=== PATIENT | male | born 1985 | race Caucasian/White ===

== ENCOUNTER 2017-01-05 14:17 | Emergency (ER) | payer SELFPAY ==
[~2017-01-05] VITALS: Ht 193 cm; Wt 79.4 kg
--- OUTSIDE RECORDS SUMMARY | 2017-01-05 14:26 | XMS REPORT | Continuity of Care Document ---
Demographics Preferred Language Unknown Marital Status Unknown Muslim Affiliation Unknown Race Unknown Ethnic Group Unknown Author Author [facility] Address Unknown Phone Unavailable Allergies Active Description Code Type Severity Reaction Onset Reported/Identified Relationship to Patient Clinical Status Yes Penicillins Drug Allergy N/A N/A 05/30/2008 Medications Problems Date Dx Coded Attending Type Code Diagnosis Diagnosed By 03/20/2008 844.9 SPRAIN/STRAIN KNEE/LEG 04/18/2008 719.46 joint pain, localized in the knee 04/18/2008 836.0 TEAR OF MEDIAL CARTILAGE OR MENISCUS OF KNEE CURRENT 10/20/2011 461.9 SINUSITIS ACUTE 10/20/2011 465.9 UPPER RESPIRATORY INFECTION 10/20/2011 784.0 HEADACHE 09/28/2012 787.01 nausea with vomiting 09/28/2012 789.01 abdominal pain in the right upper belly (RUQ) Procedures Code [place] [address] THERAPUTIC INJ SQ/IM 09/28/2012 J1885 TORADOL INJ 09/28 22688 UA LONG DIP 09/28 Results Encounters ACCT No. Visit Date/Time Discharge Status Pt. Type Provider Facility Loc./Unit Complaint [id number] 09/28/2012 14:37:00 Document Registration
[2017-01-05] MEDS ORDERED: KETOROLAC 60 MG/2 ML VIAL IM STA (15:12)
--- NOTE | 2017-01-05 15:21 | ED Abdominal Pain ---
General Chief Complaint: Abdominal/GI Problems Stated Complaint: RIGHT SIDE PAIN Nursing Triage Note: to ER from [facility] with reports of right sided abdominal pain. Denies any other issues. Sepsis Screen: No Definite Risk History of Present Illness Time Seen By Provider: 15:00 Initial Comments Patient reports right upper and lower quadrant pain. He reports the last evening he was urinating when he felt and heard a stone. He visualized in the toilet. Since then he has had right-sided abdominal pain. He denies a previous history of kidney stones. He has been told that he has cholecystitis, in the past. He reports some nausea this morning but no vomiting. He was seen at [facility] in [place], [place] earlier today and referred here for additional testing. Timing/Duration: 12-24 Hours Severity/Quality: Moderate Location: RUQ, RLQ Radiation: No Radiation Activities at Onset: None Modifying Factors: Improves With Analgesics, Improves With Resting Associated Symptoms: Denies Symptoms Allergies and Home Medications Allergies Uncoded Allergies: PENICILLIN (Allergy, Unknown, 01/05/17) SULFA (Allergy, Unknown, 01/05/17) Home Medications Tramadol HCl 50 Mg Tablet, 50 MG PO Q8H PRN for PAIN-MODERATE, #12 Ref 0 Prescribed by: NELLIE AVILA on 01/05/17 1624 Review of Systems Constitutional: no symptoms reported, see HPI Gastrointestinal: See HPI, Abdominal Pain Genitourinary: See HPI, Flank Pain (right), Pain All Other Systems Reviewed Negative Unless Noted: Yes Past Mwleilp-Eifwym-Wnwnkj Hx Patient Social History Alcohol Use: Denies Use Recreational Drug Use: No Smoking Status: Current Everyday Smoker Type Used: Cigarettes 2nd Hand Smoke Exposure: Yes Recent Foreign Travel: No Contact w/Someone Who Travel: No Recent Infectious Disease Expo: No Recent Hopitalizations: No Physical Abuse: No Sexual Abuse: No Immunizations Up To Date Tetanus Booster (TDap): Unknown PED Vaccines UTD: Yes Seasonal Allergies Seasonal Allergies: No Surgeries History of Surgeries: Yes (back surgery) Respiratory History of Respiratory Disorde: No Cardiovascular History of Cardiac Disorders: No Neurological History of Neurological Disord: No Genitourinary History of Genitourinary Disor: No Gastrointestinal History of Gastrointestinal Di: No Musculoskeletal History of Musculoskeletal Dis: Yes Musculoskeletal Disorders: Chronic Back Pain Endocrine History of Endocrine Disorders: No HEENT History of HEENT Disorders: No Cancer History of Cancer: No Psychosocial History of Psychiatric Problem: No Suicide Risk Score: 0 Blood Transfusions History of Blood Disorders: No Reviewed Nursing Assessment Reviewed/Agree w Nursing PMH: Yes Physical Exam Vital Signs VS - Last 72 Hours, by Label 01/05/17 01/05/17 01/05/17 14:31 15:32 16:31 Temp 98.2 98.2 98.2 Pulse 66 68 Resp 16 18 B/P (MAP) 111/37 Pulse Ox 96 98 O2 Delivery Room Air Room Air Capillary Refill : Less Than 3 Seconds General Appearance: WD/WN, no apparent distress HEENT: PERRL/EOMI, normal ENT inspection, TMs normal, pharynx normal Neck: non-tender, full range of motion, supple, normal inspection Respiratory: chest non-tender, lungs clear, normal breath sounds Cardiovascular: normal peripheral pulses, regular rate, rhythm, no murmur Gastrointestinal: normal bowel sounds, soft, no organomegaly, guarding, rebound , tenderness (right upper and lower quadrants) Back: no vertebral tenderness, CVA tenderness (R) Skin: normal color, warm/dry Lymphatic: no adenopathy Progress/Results/Core Measures Results/Orders My Orders Orders - NELLIE AVILA Ct Abd/Pelvis Wo(Kidney Stone) (01/05/17 15:12) Ketorolac Injection (Toradol Injection) (01/05/17 15:12) Vital Signs/I&O Vital Sign - Last 12Hours 01/05/17 01/05/17 01/05/17 14:31 15:32 16:31 Temp 98.2 98.2 98.2 Pulse 66 68 Resp 16 18 B/P (MAP) 111/37 Pulse Ox 96 98 O2 Delivery Room Air Room Air Blood Pressure Mean: 61 Progress Note : Time: 15:00 Progress Note Initial evaluation completed reviewed labs from [facility] from [place] WBC 6.0 hemoglobin 14.2, hematocrit 1.9 platelets 198. Sodium 140, potassium 4.4. Creatinine 0.85. UA essentially normal urine drugs green showed a presumptive positive on opiates no other abnormality seen. Recommended Toradol [address] abdomen and pelvis for stones. 1555 CT study essentially normal. 1615 patient reports decreased pain since the Toradol was given. Discussed discharge planning, patient agreed with this treatment plan. Diagnostic Imaging Diagonstic Imaging: CT Plain Films/CT/US/NM/MRI: abdomen, pelvis Comments NAME: SHYANNE MICHEL [facility] REC#: [id number] PT STATUS: REG ER : 1985 PHYSICIAN: NELLIE AVILA ADMIT DATE: 01/05/17/ER Draft Date of Exam:01/05/17 CT ABD/PELVIS WO(KIDNEY STONE) PROCEDURE: CT urinary tract, rule out kidney stone. TECHNIQUE: Multiple contiguous axial images were obtained through the abdomen and pelvis without the use of intravenous contrast. INDICATION: Flank pain. FINDINGS: The lung bases are clear. The liver, the gallbladder, the spleen, the pancreas, and the adrenal glands appear unremarkable for an unenhanced exam. The kidneys demonstrate no hydronephrosis. There are calcifications in the pelvis adjacent to the course of the ureters but are favored to be related to phleboliths. The exact location of the distal ureter in the pelvis on both sides is difficult to confirm with certainty on this unenhanced exam. There is no free fluid or fluid collection seen in the abdomen or pelvis. The abdominal aorta is normal in caliber. There is no bowel obstruction. The appendix proximal aspect appears normal. Its distal aspect is not well seen. The osseous structures demonstrate a 1-cm intertrochanteric sclerotic lesion on the right side, likely a bony island. IMPRESSION: No hydronephrosis. Calcifications in the pelvis are favored to be related to phleboliths with no definite urinary tract stones. Dictated on workstation # [id number] Dict: 01/05/17 1530 Trans: 01/05/17 1538 [id number] Interpreted by: ANTON MCKEON MD Electronically signed by: Reviewed: Reviewed by Me Departure Impression Impression: Primary Impression: Abdominal pain Qualified Codes: R10.31 - Right lower quadrant pain Disposition: 01 HOME, SELF-CARE Condition: Improved Departure-Patient Inst. Decision time for Depature: 16:10 Referrals: [facility] (PCP/Family) Primary Care Physician Patient Instructions: Acute Abdomen (Belly Pain), Adult (DC), Kidney Stones (DC ) Add. Discharge Instructions: Increase water intake. May alternate Tylenol 650 mg and ibuprofen 600 mg every 4 hours. Empty bladder frequently. Follow-up with primary care provider at [facility] if symptoms continue. Return to emergency department for increased pain not managed with pain medicine , fever greater than 101, inability urinate or new concerns. All discharge instructions reviewed with patient and/or family. Voiced understanding. Scripts Tramadol HCl (Tramadol HCl) 50 Mg Tablet 50 MG PO Q8H Y for PAIN-MODERATE, #12 TAB 0 Refills Prov: NELLIE AVILA 01/05/17 NELLIE AVILA Jan 05, 2017 15:21
--- NOTE | 2017-01-05 15:39 | Diagnostic Imaging Report ---
PROCEDURE: CT urinary tract, rule out kidney stone. TECHNIQUE: Multiple contiguous axial images were obtained through the abdomen and pelvis without the use of intravenous contrast. INDICATION: Flank pain. FINDINGS: The lung bases are clear. The liver, the gallbladder, the spleen, the pancreas, and the adrenal glands appear unremarkable for an unenhanced exam. The kidneys demonstrate no hydronephrosis. There are calcifications in the pelvis adjacent to the course of the ureters but are favored to be related to phleboliths. The exact location of the distal ureter in the pelvis on both sides is difficult to confirm with certainty on this unenhanced exam. There is no free fluid or fluid collection seen in the abdomen or pelvis. The abdominal aorta is normal in caliber. There is no bowel obstruction. The appendix proximal aspect appears normal. Its distal aspect is not well seen. The osseous structures demonstrate a 1-cm intertrochanteric sclerotic lesion on the right side, likely a bony island. IMPRESSION: No hydronephrosis. Calcifications in the pelvis are favored to be related to phleboliths with no definite urinary tract stones. Dictated by: Dictated on workstation # [id number]
[2017-01-05] MEDS ORDERED: TRAM50TA2 PO (16:24)
[2017-01-05 16:31] VITALS: BP 118/64
== END 2017-01-05 16:31 | disposition home or self-care (01) ==
LOC: EDUNIT# 14:17 → ER 14:22
DX: R10.31 Right lower quadrant pain (principal); R10.11 Right upper quadrant pain; F17.210 Nicotine dependence, cigarettes, uncomplicated; Z87.19 Personal history of other diseases of the digestive system; Z98.890 Other specified postprocedural states
CPT/HCPCS: 74176; 96372; 99284

== ENCOUNTER 2017-01-17 16:09 | Emergency (ER) | payer SELFPAY ==
[~2017-01-17] VITALS: Ht 193 cm; Wt 79.4 kg
[~2017-01-17 16:09] MED LIST: TRAM50TA2 PO
--- OUTSIDE RECORDS SUMMARY | 2017-01-17 16:13 | XMS REPORT | Continuity of Care Document ---
Demographics Preferred Language Unknown Marital Status Unknown Yarsanism Affiliation Unknown Race Unknown Ethnic Group Unknown Author Author [facility] Address Unknown Phone Unavailable Allergies Active Description [...] Procedures Code [place] [address] THERAPUTIC INJ SQ/IM 09/28/2012 J1885 TORADOL INJ 09/28 83841 UA LONG DIP 09/28 Results Encounters ACCT No. Visit Date/Time Discharge Status Pt. Type Provider Facility Loc./Unit Complaint [id number] 09/28/2012 14:37:00 Document Registration
--- NOTE | 2017-01-17 16:17 | ED Upper Extremity ---
General Chief Complaint: Upper Extremity Stated Complaint: RT HAND INJ,PUNCHED A TREE Source: patient History of Present Illness Time seen by provider: 16:16 Initial Comments To ER with pain and swelling to the dorsal aspect of the right hand after he punched a tree yesterday evening. He assures me this was not a fight bite and these are not teeth hernandez on his hand. He states that he has had a tetanus shot within the last 5 years. Onset: yesterday Severity: moderate Pain/Injury Location: right hand Method of Injury: direct blow Modifying Factors: Worse With Movement Allergies and Home Medications Allergies Uncoded Allergies: PENICILLIN (Allergy, Unknown, 01/05/17) SULFA (Allergy, Unknown, 01/05/17) Home Medications Tramadol HCl 50 Mg Tablet, 50 MG PO Q8H PRN for PAIN-MODERATE, #12 Ref 0 Prescribed by: NELLIE AVILA on 01/05/17 5933 Constitutional: see HPI EENTM: see HPI Respiratory: no symptoms reported Cardiovascular: no symptoms reported Genitourinary: no symptoms reported Musculoskeletal: see HPI Skin: no symptoms reported Psychiatric/Neurological: No Symptoms Reported Past Eprnteq-Gairai-Pywbwc Hx Patient Social History Alcohol Use: Denies Use Recreational Drug Use: No Smoking Status: Current Everyday Smoker Type Used: Cigarettes 2nd Hand Smoke Exposure: Yes Recent Foreign Travel: No Contact w/Someone Who Travel: No Recent Hopitalizations: No Immunizations Up To Date Tetanus Booster (TDap): Less than 5yrs PED Vaccines UTD: Yes Seasonal Allergies Seasonal Allergies: No Surgeries History of Surgeries: Yes (back surgery) Respiratory History of Respiratory Disorde: No Cardiovascular History of Cardiac Disorders: No Neurological History of Neurological Disord: No Genitourinary History of Genitourinary Disor: No Gastrointestinal History of Gastrointestinal Di: No Musculoskeletal History of Musculoskeletal Dis: Yes Musculoskeletal Disorders: Chronic Back Pain Endocrine History of Endocrine Disorders: No HEENT History of HEENT Disorders: No Cancer History of Cancer: No Psychosocial History of Psychiatric Problem: No Blood Transfusions History of Blood Disorders: No Physical Exam Vital Signs Vital Sign - Last 12Hours 01/17/17 16:15 Temp 98.2 Pulse 84 Resp 18 B/P (MAP) 130/89 Pulse Ox 99 Capillary Refill : General Appearance: WD/WN, no apparent distress HEENT: PERRL/EOMI, normal ENT inspection Neck: non-tender, full range of motion Respiratory: no respiratory distress, no accessory muscle use Gastrointestinal: normal bowel sounds, non tender, soft Shoulder: normal inspection, non-tender Elbow/Forearm: normal inspection, non-tender, Right Wrist: Yes normal inspection, Yes non-tender Hand: Right, abrasions (over the dorsal aspect of the PIP joint third and fourth fingers.), bone tenderness, ecchymosis, limited ROM, swelling Neurologic/Psychiatric: alert, normal mood/affect, oriented x 3 Skin: normal color, warm/dry Progress/Results/Core Measures Results/Orders My Orders Orders - CALVIN MCMANUS APRN Hand, Right, 3 Views (01/17/17 16:20) Vital Signs/I&O Vital Sign - Last 12Hours 01/17/17 16:15 Temp 98.2 Pulse 84 Resp 18 B/P (MAP) 130/89 Pulse Ox 99 Departure Impression Impression: Primary Impression: Soft tissue infection Additional Impression: Contusion Disposition: 01 HOME, SELF-CARE Condition: Stable Departure-Patient Inst. Decision time for Depature: 16:28 Referrals: NO,LOCAL PHYSICIAN (PCP/Family) Primary Care Physician Patient Instructions: Contusion (DC) Add. Discharge Instructions: 1. antibiotics as directed. These are the most important medication. 2. Return to ER for any increased redness, swelling, or fevers 3. All discharge instructions reviewed with patient and/or family. Voiced understanding. Scripts Tramadol HCl (Ultram) 50 Mg Tablet 50 MG PO Q6H Y for PAIN-SEVERE, #10 TAB Do not fill unless Doxycycline is also filled. Prov: CALVIN MCMANUS APRN 01/17/17 Doxycycline Hyclate (Doxycycline Hyclate) 100 Mg Tablet 100 MG PO BID, #14 TAB Prov: CALVIN MCMANUS APRN 01/17/17 CALVIN MCMANUS APRN Jan 17, 2017 16:17
[2017-01-17] MEDS ORDERED: DOXY100T2 PO (16:30)
[2017-01-17] MEDS ORDERED: TRAM-42 PO (16:30)
--- NOTE | 2017-01-17 16:37 | Diagnostic Imaging Report ---
EXAMINATION: Three views of the right hand. INDICATION: Severe right hand pain after punching a tree. FINDINGS: There is suggestion of mild soft tissue swelling along the dorsal aspect of the hand at the level of the metacarpal bones. No fracture, dislocation, or radiopaque foreign body is seen. The joint alignment is satisfactory. IMPRESSION: No fracture is seen. Dictated by: Dictated on workstation # [id number]
[2017-01-17 16:54] VITALS: BP 130/89
== END 2017-01-17 16:54 | disposition home or self-care (01) ==
LOC: EDUNIT# 16:09 → ER 16:11
DX: L98.9 Disorder of the skin and subcutaneous tissue, unspecified; W22.09XA Striking against other stationary object, initial encounter; S60.221A Contusion of right hand, initial encounter; F17.210 Nicotine dependence, cigarettes, uncomplicated
CPT/HCPCS: 73130; 99282

== ENCOUNTER 2017-12-26 20:08 | Emergency (ER) | payer SELFPAY ==
[~2017-12-26] VITALS: Ht 193 cm; Wt 82.6 kg
[~2017-12-26 20:08] MED LIST changes: +DOXY100T2 PO; +TRAM-42 PO
--- OUTSIDE RECORDS SUMMARY | 2017-12-26 20:12 | XMS REPORT ---
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 Active Problem Unspecified mood [affective] disorder F39 Active 55601495 Problem Pneumonia of right lower lobe due to infectious organism J18.1 Active 616848522 Problem Panic disorder F41.0 Active 024657602 Problem Polysubstance abuse F19.10 Active 054516716 ALLERGIES Substance Reaction Event Type Date Status Penicillin G Sodium Unknown Drug Allergy Oct, Active Sulfa Unknown Non Drug Allergy Oct, Active ENCOUNTERS Encounter Location Date Diagnosis [facility] [id number] [place] [phone] Jan, [facility] [address] [place] [address] Dec, [facility] [id number] [place] [phone] Dec, 2017 Unspecified mood [affective] disorder F39 ; Polysubstance abuse F19.10 and Panic disorder F41.0 [facility] [address] [place] [address] 15 Nov, 2017 Methamphetamine use disorder, severe, 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 ; Heroin use disorder, severe F11.20 and Cannabis use disorder, moderate, dependence F12.20 [facility] [id number] [place] [phone] Nov, Tinea versicolor B36.0 [facility] [address] [place] [phone] Nov, Unspecified mood [affective] disorder F39 ; Polysubstance abuse F19.10 and Panic disorder F41.0 [facility] [address] [place] [phone] Nov, [facility] [id number] [place] [phone] Nov, [facility] [id number] [place] [phone] Oct, Unspecified mood [affective] disorder F39 ; Polysubstance abuse F19.10 and Panic disorder F41.0 [facility] [address] [place] [phone] Oct, Tinea versicolor B36.0 [facility] [address] [place] [phone] Sep, Unspecified mood [affective] disorder F39 ; Polysubstance abuse F19.10 and Panic disorder F41.0 [facility] [address] [id number] Sep, Dental examination Z01.20 [facility] [address] [place] [phone] Sep, Unspecified mood [affective] disorder F39 and Polysubstance abuse F19.10 [facility] [id number] [place] [id number] August, [facility] [address] [id number] [place] [id number] August, Pneumonia of right lower lobe due to infectious organism J18.1 [facility] [address] [id number] [phone] Oct, [facility] [address] [id number] [place] [phone] August, Acute suppurative otitis media of right ear without spontaneous rupture of tympanic membrane, recurrence not specified H66.001 and Tinea versicolor B36.[address] [id number] [place] [id number] Sep, Dental examination V72.2 [address] [address] Jul, [facility] [id number] [address] Jul, [address] [address] Sep, [id number] [address] Oct, [id number] [place] [address] May, [id number] [place] [address] Mar, IMMUNIZATIONS No Known Immunizations SOCIAL HISTORY Never Assessed REASON FOR VISIT f/u. Abelardo GREENE PLAN OF CARE Activity Details Follow Up 3 Weeks Reason: f/u VITAL SIGNS Height 75 in 2017-11-02 Weight 186 lbs 2017-11-02 Heart Rate 78 bpm 2017-11-02 Respiratory Rate 20 2017-11-02 BMI 23.25 kg/m2 2017-11-02 Blood pressure systolic 110 mmHg 2017-11-02 Blood pressure diastolic 60 mmHg 2017-11-02 MEDICATIONS Medication Instructions Dosage Frequency Start Date End Date Duration Status Fluconazole 150 MG Orally once weekly 2 tablets Oct, Oct, 8 days Active Remeron 15 mg Orally Once a day at bedtime 1 tablet Oct, 30 day(s) Active Trileptal 300 MG Orally once a day in the morning and 2 tablets at bedtime 1 tablet Sep, 30 days Active ProAir HFA 108 (90 Base) MCG/ACT Inhalation 4 times a day 2 puffs 6h August 07 days Active RESULTS No Results PROCEDURES No Known procedures INSTRUCTIONS MEDICATIONS ADMINISTERED No Known Medications MEDICAL (GENERAL) HISTORY Type Description Date Medical History asthma Hospitalization History [facility] pneumonia 08/30/2017
--- OUTSIDE RECORDS SUMMARY | 2017-12-26 20:13 | XMS REPORT ---
Author Author MARIA FERNANDA KEANE [facility] Address [address] [place] [address] Care Team Providers Care Theatrical Scenic Designer Name Role Phone MARIA FERNANDA KEANE Unavailable PROBLEMS Type Condition ICD9-CM Code YCW60-AR Code Onset Dates Condition Status SNOMED Code Problem Tinea versicolor B36.0 Active 75212946 Problem Acute suppurative otitis media of right ear without spontaneous rupture of tympanic membrane, recurrence not specified H66.001 Active 55062813 ALLERGIES Substance Reaction Event Type Date Status Penicillin G Sodium Unknown Drug Allergy August, Active SOCIAL HISTORY Never Assessed PLAN OF CARE Activity Details Follow Up prn Reason: VITAL SIGNS Height 75 in 2016-08-17 Weight 170.6 lbs 2016-08-17 Temperature 97 degrees Fahrenheit 2016-08-17 Heart Rate 84 bpm 2016-08-17 Respiratory Rate 16 2016-08-17 BMI 21.32 kg/m2 2016-08-17 Blood pressure systolic 120 mmHg 2016-08-17 Blood pressure diastolic 72 mmHg 2016-08-17 MEDICATIONS Medication Instructions Dosage Frequency Start Date End Date Duration Status Ketoconazole 2 % Externally Once a day 1 application to affected area 24h August, August, 14 days Active Cephalexin 500 mg Orally 3 times a day 1 capsule 8h August, August, 14 days Active RESULTS No Results PROCEDURES No Known procedures IMMUNIZATIONS No Known Immunizations
--- OUTSIDE RECORDS SUMMARY | 2017-12-26 20:13 | XMS REPORT ---
Author Author MELVA HOLLINGSWORTH [facility] Address [address] [place] [address] Phone Unavailable Care Team Providers Care Assistant Merchandiser Name Role Phone MELVA HOLLINGSWORTH Unavailable Unavailable PROBLEMS Type Condition ICD9-CM Code [id number] Code Onset Dates Condition Status SNOMED Code Problem Tinea versicolor B36.0 Active 67633050 Problem Acute suppurative otitis media of right ear without spontaneous rupture of tympanic membrane, recurrence not specified H66.001 Active 72543369 Problem Cannabis use disorder, moderate, dependence F12.20 Active 42262412 Problem Methamphetamine use disorder, severe, 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 Active Problem Unspecified mood [affective] disorder F39 Active 04802394 Problem Pneumonia of right lower lobe due to infectious organism J18.1 Active 136277849 Problem Panic disorder F41.0 Active 502789830 Problem Polysubstance abuse F19.10 Active 641244430 ALLERGIES Substance Reaction Event Type Date Status Penicillin G Sodium Unknown Drug Allergy Sep, Active Sulfa Unknown Non Drug Allergy Sep, Active ENCOUNTERS Encounter Location Date Diagnosis [facility] [address] [place] [address] Dec, [facility] [id number] [place] [address] Dec, [facility] [address] [place] [address] Nov, Methamphetamine use disorder, severe, 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 ; Heroin use disorder, severe F11.20 and Cannabis use disorder, moderate, dependence F12.20 [facility] [id number] [place] [address] 37481[address] 2831 Nov, Tinea versicolor B36.0 [facility] [id number] [place] [address] 83866- [address] Nov, Unspecified mood [affective] disorder F39 ; Polysubstance abuse F19.10 and Panic disorder F41.0 [facility] [address] [id number] [address] Nov, [facility] [address] [place] [address] 07069- 2686 Nov, [facility] [address] [place] [address] 89201- 4265 Oct, Unspecified mood [affective] disorder F39 ; Polysubstance abuse F19.10 and Panic disorder F41.0 [facility] [address] [place] [address]33[address] 9158 Oct, Tinea versicolor B36.0 [facility] [address] [place] [address]13[address] 6621 Sep, Unspecified mood [affective] disorder F39 ; Polysubstance abuse F19.10 and Panic disorder F41.0 [facility] [address] [place] [id number] Sep, Dental examination Z01.20 [facility] [address] [place] [address] 94097- 0745 Sep, Unspecified mood [affective] disorder F39 and Polysubstance abuse F19.10 [facility] [address] [id number] [id number] August, [facility] [address] [id number][place] [id number] August, Pneumonia of right lower lobe due to infectious organism J18.1 [facility] [address] [id number][place] [id number] Oct, [facility] [address] [id number][place] [id number] August, Acute suppurative otitis media of right ear without spontaneous rupture of tympanic membrane, recurrence not specified H66.001 and Tinea versicolor B36.0 [facility] [address] [id number][place] [id number] Sep, Dental examination V72.2 [facility] [address] [id number] [address] Jul, [facility] [address] [id number] [address] Jul, [facility] [address] [id number] [address] Sep, [facility] [address] [id number] [address] Oct, [facility] [address] [facility] [id number] [address] May, [facility] [address] [id number] [address] Mar, IMMUNIZATIONS No Known Immunizations SOCIAL HISTORY Never Assessed REASON FOR VISIT Adult Outreach [facility] PLAN OF CARE Activity Details Follow Up prn Reason:Patient will contact if appointment is desired VITAL SIGNS MEDICATIONS Medication Instructions Dosage Frequency Start Date End Date Duration Status ProAir HFA 108 (90 Base) MCG/ACT Inhalation 4 times a day 2 puffs 6h August 07 days Not-Taking RESULTS No Results PROCEDURES Procedure Date Ordered Result Body Site Full mouth debridement October 10, 2017 Billing Notes on claim October 10, 2017 Dental Outreach adjust balance October 10, 2017 INSTRUCTIONS MEDICATIONS ADMINISTERED No Known Medications MEDICAL (GENERAL) HISTORY Type Description Date Medical History asthma Hospitalization History [facility] pneumonia 08/30/2017
--- OUTSIDE RECORDS SUMMARY | 2017-12-26 20:13 | XMS REPORT ---
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 Active Problem Unspecified mood [affective] disorder F39 Active 25076673 Problem Pneumonia of right lower lobe due to infectious organism J18.1 Active 864822822 Problem Panic disorder F41.0 Active 535328216 Problem Polysubstance abuse F19.10 Active 877596816 ALLERGIES Substance Reaction Event Type Date Status Penicillin G Sodium Unknown Drug Allergy Sep, Active Sulfa Unknown Non Drug Allergy Sep, Active ENCOUNTERS Encounter Location Date Diagnosis [facility] [address] [place] [address] Dec, [facility] [id number] [place] [address]001[address] Dec, [facility] [address] [place] [address] Nov, Methamphetamine use disorder, severe, 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 [id number] [address] Nov, [facility] [address] [place] [address] 91653- 6547 Oct, Unspecified mood [affective] disorder F39 ; Polysubstance abuse F19.10 and Panic disorder F41.0 [facility] [address] [place] [address] 64279- 2625 Oct, Tinea versicolor B36.0 [facility] [address] [place] [address] 37734- 9044 Sep, Unspecified mood [affective] disorder F39 ; Polysubstance abuse F19.10 and Panic disorder F41.0 [facility] [address] [place] [id number] Sep, Dental examination Z01.20 [facility] [address] [place] [address] 75199- 2727 Sep, Unspecified mood [affective] disorder F39 and Polysubstance abuse F19.10 [facility] [address] [id number][place] [id number] August, [facility] [address] [id number][place] [id number] August, Pneumonia of right lower lobe due to infectious organism J18.1 [facility] [address] [id number][place] [id number] Oct, [facility] [address] [id number][place] [id number] August, Acute suppurative otitis media of right ear without spontaneous rupture of tympanic membrane, recurrence not specified H66.001 and Tinea versicolor B36.0 [facility] [address] [id number] [place] [id number] Sep, Dental examination V72.2 [facility] [address] [facility] [id number] [place] [address] Jul, [facility] [address] [facility] [id number] [place] [address] Jul, [facility] [address] [facility] [id number] [place] [address]92 Sep, [facility] [address] [facility] [id number] [place] [address] Oct, [facility] [address] [facility] [id number] [place] [address] 9[address] May, [facility] [address] [facility] [id number] [place] [address] Mar, IMMUNIZATIONS No Known Immunizations SOCIAL HISTORY Never Assessed REASON FOR VISIT fran -Nathan ELLER PLAN OF CARE Activity Details Follow Up 3 Weeks Reason: f/u VITAL SIGNS Height 75 in 2017-10-12 Weight 178.7 lbs 2017-10-12 Heart Rate 74 bpm 2017-10-12 Respiratory Rate 20 2017-10-12 Oximetry on room air:97 % 2017-10-12 BMI 22.33 kg/m2 2017-10-12 Blood pressure systolic 130 mmHg 2017-10-12 Blood pressure diastolic 50 mmHg 2017-10-12 MEDICATIONS Medication Instructions Dosage Frequency Start Date End Date Duration Status ProAir HFA 108 (90 Base) MCG/ACT Inhalation 4 times a day 2 puffs 6h August 07 days Active Trileptal 300 MG Orally Twice a day 1 tablet 12h Sep, 30 day(s ) Active Trazodone HCl 50 mg Orally Once a day at bedtime 1 tablet Sep, 30 day(s) Active RESULTS No Results PROCEDURES No Known procedures INSTRUCTIONS MEDICATIONS ADMINISTERED No Known Medications MEDICAL (GENERAL) HISTORY Type Description Date Medical History asthma Hospitalization History [place] [facility] pneumonia 08/30/2017
--- OUTSIDE RECORDS SUMMARY | 2017-12-26 20:13 | XMS REPORT ---
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 Active Problem Unspecified mood [affective] disorder F39 Active 60460479 Problem Pneumonia of right lower lobe due to infectious organism J18.1 Active 674993894 Problem Panic disorder F41.0 Active 754937358 Problem Polysubstance abuse F19.10 Active 668548661 ALLERGIES Substance Reaction Event Type Date Status Penicillin G Sodium Unknown Drug Allergy Oct, Active Sulfa Unknown Non Drug Allergy Oct, Active ENCOUNTERS Encounter Location Date Diagnosis [facility] [address] [place] [address]- [address] Jan, [facility] [address] [place] [address] Dec, [facility] [id number] [place] [address] 84882- 6[address] 04 Dec, 2017 Unspecified mood [affective] disorder F39 ; Polysubstance abuse F19.10 and Panic disorder F41.0 [facility] [address] [place] [address] 15 Nov, 2017 Methamphetamine use disorder, severe, 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 ; Heroin use disorder, severe F11.20 and Cannabis use disorder, moderate, dependence F12.20 [facility] [id number] [place] [address] 96559- 4838 Nov, Tinea versicolor B36.0 [facility] [address] [address] Nov, Unspecified mood [affective] disorder F39 ; Polysubstance abuse F19.10 and Panic disorder F41.0 [facility] [address], [place] [address]- [address] Nov, [facility] [address] [place] [address] 98993- 7027 Nov, [facility] [address] [place] [address] 83327- 0703 Oct, Unspecified mood [affective] disorder F39 ; Polysubstance abuse F19.10 and Panic disorder F41.0 [facility] [address], [place] [address] Oct, Tinea versicolor B36.0 [facility] [address], [place] [address] Sep, Unspecified mood [affective] disorder F39 ; Polysubstance abuse F19.10 and Panic disorder F41.0 [facility] [address] [id number] [id number] Sep, Dental examination Z01.20 [facility] [address] [id number], [place] [address] Sep, Unspecified mood [affective] disorder F39 and Polysubstance abuse F19.10 [facility] [address] [id number] [place] [id number] August, [facility] [address] [id number] [place] [id number] August, Pneumonia of right lower lobe due to infectious organism J18.1 [facility] [address] [id number] [place] [phone] Oct, [facility] [address] [id number] [place] [id number] August, Acute suppurative otitis media of right ear without spontaneous rupture of tympanic membrane, recurrence not specified H66.001 and Tinea versicolor B36.0 [facility] [address] [facility] [address] [id number] [place] [address] Sep, Dental examination V72.2 [facility] [address], [place] [address] Jul, [facility] [address] [address] Jul, [facility] [id number] [place] [address] 56024- 0414 Sep, [facility] [address], [place] [address] Oct, [facility] [address], [place] [address]- 9[address] May, [facility] [address], [place] [address] 2517 Mar, IMMUNIZATIONS No Known Immunizations SOCIAL HISTORY Never Assessed REASON FOR VISIT DAPHNIE tesfaye PLAN OF CARE Activity Details Follow Up prn Reason: VITAL SIGNS Height 75 in 2017-11-02 Weight 184.5 lbs 2017-11-02 Temperature 98.0 degrees Fahrenheit 2017-11-02 Heart Rate 85 bpm 2017-11-02 Respiratory Rate 20 2017-11-02 BMI 23.06 kg/m2 2017-11-02 Blood pressure systolic 110 mmHg 2017-11-02 Blood pressure diastolic 78 mmHg 2017-11-02 MEDICATIONS Medication Instructions Dosage Frequency Start Date End Date Duration Status Fluconazole 150 MG Orally once weekly 2 tablets Oct, Oct, 8 days Active Trazodone HCl 50 mg Orally Once a day at bedtime 1 tablet Sep, 30 day(s) Active ProAir HFA 108 (90 Base) MCG/ACT Inhalation 4 times a day 2 puffs 6h August 07 days Active Trileptal 300 MG Orally Twice a day 1 tablet 12h Sep, 30 day(s ) Active RESULTS No Results PROCEDURES No Known procedures INSTRUCTIONS MEDICATIONS ADMINISTERED No Known Medications MEDICAL (GENERAL) HISTORY Type Description Date Medical History asthma Hospitalization History [place] [facility] pneumonia 08/30/2017
--- OUTSIDE RECORDS SUMMARY | 2017-12-26 20:13 | XMS REPORT ---
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 Active Problem Unspecified mood [affective] disorder F39 Active 10872696 Problem Pneumonia of right lower lobe due to infectious organism J18.1 Active 703760910 Problem Panic disorder F41.0 Active 848353262 Problem Polysubstance abuse F19.10 Active 314984527 ALLERGIES No Information ENCOUNTERS Encounter Location Date Diagnosis [facility] [id number] [place] [address]- [address]20 Nov, [facility] [address] [place] [address] Nov, [facility] [address] [place] [address] Nov, Methamphetamine use disorder, severe, 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 ; Heroin use disorder, severe F11.20 and Cannabis use disorder, moderate, dependence F12.20 [facility] [address] [place] [address] 15466- 8844 Nov, Tinea versicolor B36.0 [facility] [id number] [place] [address] 37450- 6518 Nov, Unspecified mood [affective] disorder F39 ; Polysubstance abuse F19.10 and Panic disorder F41.0 [facility] [address] [id number], [place] [address] Nov, [facility] [address] [place] [address] 97378- 9308 Nov, [facility] [address] [place] [address] 93638- 1576 Oct, Unspecified mood [affective] disorder F39 ; Polysubstance abuse F19.10 and Panic disorder F41.0 [facility] [address] [place] [address] 80287- 8017 Oct, Tinea versicolor B36.0 [facility] [address] [place] [address] 09759- 9704 Sep, Unspecified mood [affective] disorder F39 ; Polysubstance abuse F19.10 [address] Panic disorder F41.0 [facility] [address] [place] [id number] Sep, Dental examination Z01.20 [facility] [address] [id number] [address] Sep, Unspecified mood [affective] disorder F39 and Polysubstance abuse F19.10 [facility] [address] [id number][place] [id number] August, [facility] [address] [id number][place] [id number] August, Pneumonia of right lower lobe due to infectious organism J18.1 [facility] [address] [id number], [place] [id number] Oct, [facility] [address] [id number][place] [id number] August, Acute suppurative otitis media of right ear without spontaneous rupture of tympanic membrane, recurrence not specified H66.001 and Tinea versicolor B36.0 [facility] [address] [id number], [place] [id number] Sep, Dental examination V72.2 [facility] [address] [id number] [address] Jul, [facility] [address] [address] Jul, [facility] [address] [id number], [place] [address]- 8[address] Sep, [facility] [address], [place] [address]- 9180 Oct, [facility] [address] [id number] [address]- 6128 May, [facility] [address], [place] [address]- 6120 Mar, IMMUNIZATIONS No Known Immunizations SOCIAL HISTORY Never Assessed REASON FOR VISIT intake PLAN OF CARE VITAL SIGNS MEDICATIONS Medication Instructions Dosage Frequency Start Date End Date Duration Status ProAir HFA 108 (90 Base) MCG/ACT Inhalation 4 times a day 2 puffs 6h August 07 days Active RESULTS No Results PROCEDURES Procedure Date Ordered Result Body Site Psych diagnostic evaluation, established patient October 09, 2017 INSTRUCTIONS MEDICATIONS ADMINISTERED No Known Medications MEDICAL (GENERAL) HISTORY Type Description Date Medical History asthma Hospitalization History [facility] pneumonia 08/30/2017
--- OUTSIDE RECORDS SUMMARY | 2017-12-26 20:13 | XMS REPORT ---
Author Author MARIA FERNANDA KEANE [facility] Address [address] [place] [address] Care Team Providers Care Boiler Assistant Operator Name Role Phone MARIA FERNANDA KEANE Unavailable PROBLEMS Type Condition ICD9-CM Code [id number] Code Onset Dates Condition Status SNOMED Code Problem Panic disorder F41.0 Active 774120019 Problem Polysubstance abuse F19.10 Active 314951651 Problem Tinea versicolor B36.0 Active 53391923 Problem Acute suppurative otitis media of right ear without spontaneous rupture of tympanic membrane, recurrence not specified H66.001 Active 77256628 Problem Unspecified mood [affective] disorder F39 Active 78039687 Problem Pneumonia of right lower lobe due to infectious organism J18.1 Active 528537386 ALLERGIES Substance Reaction Event Type Date Status Penicillin G Sodium Unknown Drug Allergy August, Active ENCOUNTERS Encounter Location Date Diagnosis [facility] [id number] [place] [address] Nov, [facility] [address] [place] [address] Nov, [facility] [id number] [place] [address] Nov, [facility] [id number] [place] [address]668[address]598 Nov, [facility] [id number] [place] [address] 3165 Nov, Tinea versicolor B36.0 [facility] [id number] [place] [address] 77[address] Nov, Unspecified mood [affective] disorder F39 ; Polysubstance abuse F19.10 and Panic disorder F41.0 [facility] [address] [place], [place] [address] Nov, [facility] [address] [place] [address]6968- 9310 Nov, [facility] [address] [place] [address] 89640[address] 5[address] Oct, Unspecified mood [affective] disorder F39 ; Polysubstance abuse F19.10 and Panic disorder F41.0 [facility] [address] [place] [address] 3578 Oct, Tinea versicolor B36.0 [facility] [address] [place] [address] 17947[address] 7[address] Sep, Unspecified mood [affective] disorder F39 ; Polysubstance abuse F19.10 and Panic disorder F41.0 [facility] [address] [place] [id number] Sep, Dental examination Z01.20 [facility] [address] [id number] [address] Sep, Unspecified mood [affective] disorder F39 and Polysubstance abuse F19.10 [facility] [address] [id number] [id number] August, [facility] [address] [id number] [id number] August, Pneumonia of right lower lobe due to infectious organism J18.1 [facility] [address] [id number] [id number] Oct, [facility] [address] [id number] [id number] August, Acute suppurative otitis media of right ear without spontaneous rupture of tympanic membrane, recurrence not specified H66.001 and Tinea versicolor B36.0 [facility] [address] [id number] [phone] Sep, Dental examination V72.2 [facility] [address] [facility] [id number], [place] [address] Jul, 2014 [facility] [address] [id number], [place] [address] Jul, [facility] [address] [facility] [id number], [place] [address] Sep, [facility] [address] [id number], [place] [address] Oct, [facility] [address] [facility] [id number] [address] May, [facility] [address], [place] [address] Mar, IMMUNIZATIONS No Known Immunizations SOCIAL HISTORY Never Assessed REASON FOR VISIT cough x 7 days. Stefanie interianon PLAN OF CARE Activity Details Follow Up prn Reason: VITAL SIGNS Height 75 in 2017-08-31 Weight 159.5 lbs 2017-08-31 Temperature 97.8 degrees Fahrenheit 2017-08-31 Heart Rate 95 bpm 2017-08-31 Respiratory Rate 20 2017-08-31 Oximetry 96 % 2017-08-31 BMI 19.93 kg/m2 2017-08-31 Blood pressure systolic 122 mmHg 2017-08-31 Blood pressure diastolic 60 mmHg 2017-08-31 MEDICATIONS Medication Instructions Dosage Frequency Start Date End Date Duration Status ProAir HFA 108 (90 Base) MCG/ACT Inhalation 4 times a day 2 puffs 6h August 07 days Active Azithromycin 250 MG Orally Once a day 2 tablets on the first day, then 1 tablet daily for 4 days 24h August, August, 5 day(s) Active RESULTS Name Result Date Reference Range Xray : Chest 2 View (IN HOUSE) 2017-08-31 PROCEDURES Procedure Date Ordered Result Body Site NEB/MDI RX INITIAL August 31, 2017 ALBUTEROL INHAL UNIT DOSE 1 MG August 31, 2017 X-RAY EXAM CHEST 2 VIEWS August 31, 2017 INSTRUCTIONS MEDICATIONS ADMINISTERED No Known Medications MEDICAL (GENERAL) HISTORY Type Description Date Medical History asthma Hospitalization History [place] [facility] [facility] pneumonia 08/30/2017
--- OUTSIDE RECORDS SUMMARY | 2017-12-26 20:13 | XMS REPORT | Continuity of Care Document ---
Demographics Preferred Language Unknown Marital Status Unknown Jain Affiliation Unknown Race Unknown Ethnic Group Unknown Author Author Count Includes [facility] Address Unknown Phone Unavailable Allergies Active Description Code Type Severity Reaction Onset Reported/Identified Relationship to Patient Clinical Status Yes Penicillins Drug Allergy N/A N/A 05/30/2008 Medications There is no data. Problems Date Dx Coded Attending Type Code [...] Procedures [place] [address] THERAPUTIC INJ SQ/IM 09/28/2012 J1885 TORADOL INJ 09/28/2012 56999 UA LONG DIP 09/28/2012 Results There is no data. Encounters ACCT No. Visit Date/Time Discharge Status Pt. Type Provider Facility Loc./Unit Complaint [id number] 09/28/2012 14:37:00 Document Registration
--- OUTSIDE RECORDS SUMMARY | 2017-12-26 20:13 | XMS REPORT ---
Author Author SMITH ANTONIO [facility] Address [address] [place] [address] Care Team Providers Care Product Safety Administrator Name Role Phone SMITH ANTONIO Unavailable PROBLEMS Type Condition ICD9-CM Code [id number] Code Onset Dates Condition Status SNOMED Code Problem Tinea versicolor B36.0 Active 53352192 Problem Acute suppurative otitis media of right ear without spontaneous rupture of tympanic membrane, recurrence not specified H66.001 Active 96586800 ALLERGIES No Information ENCOUNTERS Encounter Location Date Diagnosis [address] [id number] [id number] Oct, [id number] [place] [id number] August, Acute suppurative otitis media of right ear without spontaneous rupture of tympanic membrane, recurrence not specified H66.001 and Tinea versicolor B36.[address] [id number] [id number] Sep, Dental examination V72.2 [facility] [address], [place] [address] Jul, [facility] [address] [place] [address] Jul, [facility] [id number] [place] [address] 27362- 5199 Sep, [facility] [id number] [place] [address] 32534- [address] Oct, [facility] [address] [place] [address] May, [facility] [address] [facility] [id number] [place] [address] Mar, IMMUNIZATIONS No Known Immunizations SOCIAL HISTORY Never Assessed REASON FOR VISIT Triage Emily HESS PLAN OF CARE VITAL SIGNS MEDICATIONS Unknown Medications RESULTS No Results PROCEDURES No Known procedures INSTRUCTIONS MEDICATIONS ADMINISTERED No Known Medications
--- OUTSIDE RECORDS SUMMARY | 2017-12-26 20:13 | XMS REPORT ---
Author Author RITA Ron [facility] Address Unknown Phone Unavailable Care Team Providers Care Chief Maintenance Supervisor Name Role Phone RITA Ron Unavailable Unavailable PROBLEMS Type Condition ICD9-CM Code [id number] Code Onset Dates Condition Status SNOMED Code Problem Panic disorder F41.0 Active 296314075 Problem Polysubstance abuse F19.10 Active 960715711 Problem Tinea versicolor B36.0 Active 34240365 Problem Acute suppurative otitis media of right ear without spontaneous rupture of tympanic membrane, recurrence not specified H66.001 Active 18782156 Problem Unspecified mood [affective] disorder F39 Active 73162110 Problem Pneumonia of right lower lobe due to infectious organism J18.1 Active 249182806 ALLERGIES No Information ENCOUNTERS Encounter Location Date Diagnosis [facility] [id number] [place] [address] Nov, [facility] [address] [place] [address] Nov, [facility] [id number] [place] [address] 99682- 6604 Nov, [facility] [id number] [place] [address] 82982- 6689 Nov, [facility] [id number] [place] [address] 08816- 7571 Nov, Tinea versicolor B36.0 [facility] [id number] [place] [address] 51091- 7745 Nov, Unspecified mood [affective] disorder F39 ; Polysubstance abuse F19.10 and Panic disorder F41.0 [facility] [id number] [place] [address] 61485- 7837 Nov, [facility] [address] [place] [address] Nov, [facility] [address] [place] [address] 82568- 7988 Oct, Unspecified mood [affective] disorder F39 ; Polysubstance abuse F19.10 and Panic disorder F41.0 [facility] [address], [place] [address] Oct, Tinea versicolor B36.0 [facility] [address] [place] [address] 80426- 5208 Sep, Unspecified mood [affective] disorder F39 ; Polysubstance abuse F19.10 and Panic disorder F41.0 [facility] [address] [place] [id number] Sep, Dental examination Z01.20 [facility] [address] [place] [address] 61457- 0660 Sep, Unspecified mood [affective] disorder F39 and Polysubstance abuse F19.10 [facility] [address] [facility] [address] [id number] [id number] August, [facility] [address] [id number] [id number] August, Pneumonia of right lower lobe due to infectious organism J18.1 [facility] [address] [facility] [address] [id number][place] [id number] Oct, [facility] [address] [id number] [phone] August, Acute suppurative otitis media of right ear without spontaneous rupture of tympanic membrane, recurrence not specified H66.001 and Tinea versicolor B36.[address] [facility] [address] [id number] [id number] Sep, 2014 Dental examination V72.2 [facility] [address] [place] [address] 95937- 9777 Jul, [facility] [address] [facility] [id number], [place] [address] Jul, [facility] [address] [id number], [place] [address] Sep, [facility] [address] [id number], [place] [address] Oct, [facility] [address] [id number], [place] [address] May, [facility] [address] [id number], [place] [address] Mar, IMMUNIZATIONS No Known Immunizations SOCIAL HISTORY Never Assessed REASON FOR VISIT [facility] Contact PLAN OF CARE Activity Details Follow Up Will use services, likely, if needed. Reason: VITAL SIGNS MEDICATIONS Unknown Medications RESULTS No Results PROCEDURES No Known procedures INSTRUCTIONS MEDICATIONS ADMINISTERED No Known Medications MEDICAL (GENERAL) HISTORY Type Description Date Medical History asthma Hospitalization History [place] [facility] pneumonia 08/30/2017
[2017-12-26] MEDS ORDERED: LACTATED RINGERS 1,000 ML IV ONE (20:23)
[2017-12-26] MEDS ORDERED: KETOROLAC 30 MG/ML VIAL IVP STA (20:23)
--- NOTE | 2017-12-26 20:27 | ED Neck-Back Pain/Injury ---
General Stated Complaint: NECK PAIN FROM FALL Source of Information: Patient History of Present Illness Date Seen by Provider: Dec 26, 2017 Time Seen by Provider: 20:15 Initial Comments PT ARRIVES VIA POV STATES HE SLIPPED WHILE GETTING OUT OF SHOWER, AND FELL BACK, HITTING THE BACK OF HIS NECK AND SHOULDER BLADE ON EDGE OF SHOWER OCCURRED AROUND 1600 STATES HE CAN'T MOVE HIS NECK--PT IS SITTING WITH HIS CHIN TO HIS CHEST, CONSTANTLY TEXTING/PLAYING ON HIS PHONE DURING HISTORY AND EXAM--REFUSES TO PUT HIS PHONE DOWN. STATES "I TRIED TO POP IT AND IT MADE IT 3 TIMES WORSE" NO LOSS OF CONSCIOUSNESS NO DIZZINESS NO PARESTHESIAS OR MOTOR DEFICITS NO VISION CHANGES + NAUSEA AND STATES HE VOMITED 5 TIMES IN A ROW. NO SHORTNESS OF BREATH OR PAIN WITH BREATHING NO PRIOR HISTORY OF NECK OR BACK PROBLEMS PT RECENTLY GOT OUT OF [facility] FOR SUBSTANCE ABUSE--SPENT 46 DAYS IN THERE, STARTING SOMETIME IN SEPTEMBER--FOR IV METH AND HEROIN USE AND THC. DENIES ANY ALCOHOL USE. Other Comments PCP: [facility] : [facility] Allergies and Home Medications Allergies Uncoded Allergies: PENICILLIN (Allergy, Unknown, 01/05/17) SULFA (Allergy, Unknown, 01/05/17) Home Medications Cyclobenzaprine HCl 10 Mg Tablet, 10 MG PO Q8H Prescribed by: ROBIN PARHAM on 12/26/172214 Doxycycline Hyclate 100 Mg Tablet, 100 MG PO BID Prescribed by: CALVIN MCMANUS on 01/17/17 1630 Naproxen 500 Mg Tablet, 500 MG PO BID Prescribed by: ROBIN PARHAM on 12/26/172214 Tramadol HCl 50 Mg Tablet, 50 MG PO Q8H PRN for PAIN-MODERATE Prescribed by: NELLIE AVILA on 01/05/17 1624 Tramadol HCl 50 Mg Tablet, 50 MG PO Q6H PRN for PAIN-SEVERE Do not fill unless Doxycycline is also filled. Prescribed by: CALVIN MCMANUS on 01/17/17 1630 Patient Home Medication List Home Medication List Reviewed: Yes Review of Systems Constitutional: no symptoms reported EENTM: no symptoms reported Respiratory: no symptoms reported Cardiovascular: no symptoms reported Gastrointestinal: see HPI; No abdominal pain; nausea, vomiting Genitourinary: no symptoms reported Musculoskeletal: see HPI, back pain, neck pain Skin: no symptoms reported Psychiatric/Neurological: No Symptoms Reported; Denies Headache, Denies Numbness, Denies Paresthesia, Denies Tingling, Denies Tremors, Denies Weakness Past Dfunngs-Vtsvtk-Iyhvev Hx Patient Social History Alcohol Use: Denies Use Recreational Drug Use: Yes (+ IV METH AND HEROIN, THC) Drug of Choice: + IV METH AND HEROIN, THC Smoking Status: Current Everyday Smoker (1 PPD) Type Used: Cigarettes (1 PPD) 2nd Hand Smoke Exposure: Yes Recent Foreign Travel: No Contact w/Someone Who Travel: No Recent Hopitalizations: No Immunizations Up To Date Tetanus Booster (TDap): Less than 5yrs PED Vaccines UTD: Yes Seasonal Allergies Seasonal Allergies: No Past Medical History Surgeries: Yes (PT DENIES ANY SURGERY TO ME ON 12/27/17, BUT HAS REPORTED BACK SURGERY ON OLD CHART) Respiratory: No Cardiac: No Neurological: No Genitourinary: No Gastrointestinal: No Musculoskeletal: Yes Chronic Back Pain Endocrine: No HEENT: No Cancer: No Psychosocial: Yes (POLYSUBSTANCE ABUSE) Bipolar Integumentary: No Blood Disorders: No Physical Exam Vital Signs Capillary Refill : Height, Weight, BMI Height: 6'4.00" Weight: 175lbs. oz. 79.608679oz; BMI Method:Stated General Appearance: WD/WN, Other (HOLDING HEAD / NECK VERY STIFFLY WITH CHIN TO CHEST, YET IS CONSTANTLY TEXTING/ PLAYING ON PHONE. PT IMMEDIATELY PLACED IN CERVICAL COLLAR AND PT LAID FLAT; VERY DRAMATIC, REEKS OF CIGARETTES) HEENT: PERRL/EOMI, Normal ENT Inspection Neck: Limited Range of Motion, Tender Lateral, Tender Midline Cardiovascular: Regular Rate, Rhythm, No Edema, No JVD, No Murmur, Normal Peripheral Pulses Respiratory: Normal Breath Sounds, No Accessory Muscle Use Gastrointestinal: Non Tender, Soft Back: No CVA Tenderness, No Vertebral Tenderness, Other (TENDERNESS TO LEFT TRAPEZIUS AREA. ) Extremity: Normal Capillary Refill, Normal Inspection, Normal Range of Motion, Non Tender Neurologic/Psychiatric: Alert, Oriented x3, No Motor/Sensory Deficits, client care manager II- XII Norm as Tested Skin: Normal Color, Warm/Dry, Other (NO EXTERNAL EVIDENCE OF TRAUMA ANYWHERE ) Progress/Results/Core Measures Results/Orders Lab Results Laboratory Tests Test 12/26/17 20:28 12/26/17 21:25 Range/Units White Blood Count 7.7 4.3-11.0 10^3/uL Red Blood Count 4.61 4.35-5.85 10^6/uL Hemoglobin 14.5 13.3-17.7 G/DL Hematocrit 41 40-54 % Mean Corpuscular Volume 89 80-99 FL Mean Corpuscular Hemoglobin 32 25-34 PG Mean Corpuscular Hemoglobin Concent 35 32-36 G/DL Red Cell Distribution Width 12.9 10.0-14.5 % Platelet Count 205 130-400 10^3/uL Mean Platelet Volume 9.9 7.4-10.4 FL Neutrophils (%) (Auto) 36 L 42-75 % Lymphocytes (%) (Auto) 50 H 12-44 % Monocytes (%) (Auto) 8 0-12 % Eosinophils (%) (Auto) 6 0-10 % Basophils (%) (Auto) 1 0-10 % Neutrophils # (Auto) 2.8 1.8-7.8 X 10^3 Lymphocytes # (Auto) 3.8 1.0-4.0 X 10^3 Monocytes # (Auto) 0.6 0.0-1.0 X 10^3 Eosinophils # (Auto) 0.5 H 0.0-0.3 10^3/uL Basophils # (Auto) 0.0 0.0-0.1 10^3/uL Sodium Level 139 135-145 MMOL/L Potassium Level 3.8 3.6-5.0 MMOL/L Chloride Level 107 98-107 MMOL/L Carbon Dioxide Level 21 21-32 MMOL/L Anion Gap 11 5-14 MMOL/L Blood Urea Nitrogen 10 7-18 MG/DL Creatinine 0.94 0.60-1.30 MG/DL Estimat Glomerular Filtration Rate > 60 BUN/Creatinine Ratio 11 Glucose Level 132 H 70-105 MG/DL Calcium Level 9.0 8.5-10.1 MG/DL Corrected Calcium 8.9 8.5-10.1 MG/DL Total Bilirubin 0.2 0.1-1.0 MG/DL Aspartate Amino Transf (AST/SGOT) 15 5-34 U/L Alanine Aminotransferase (ALT/SGPT) 11 0-55 U/L Alkaline Phosphatase 102 40-136 U/L Total Protein 6.9 6.4-8.2 GM/DL Albumin 4.1 3.2-4.5 GM/DL Serum Alcohol < 10 <10 MG/DL Urine Color YELLOW Urine Clarity CLEAR Urine pH 6 5-9 Urine Specific Widener 1.015 L 1.016-1.022 Urine Protein NEGATIVE NEGATIVE Urine Glucose (UA) NEGATIVE NEGATIVE Urine Ketones NEGATIVE NEGATIVE Urine Nitrite NEGATIVE NEGATIVE Urine Bilirubin NEGATIVE NEGATIVE Urine Urobilinogen 1 NORMAL MG/DL Urine Leukocyte Esterase 1+ H NEGATIVE Urine RBC (Auto) 2+ H NEGATIVE Urine RBC 2-5 H /HPF Urine WBC RARE /HPF Urine Crystals NONE /LPF Urine Bacteria NEGATIVE /HPF Urine Casts NONE /LPF Urine Mucus LARGE H /LPF Urine Culture Indicated NO Urine Opiates Screen NEGATIVE NEGATIVE Urine Oxycodone Screen NEGATIVE NEGATIVE Urine Methadone Screen NEGATIVE NEGATIVE Urine Propoxyphene Screen NEGATIVE NEGATIVE Urine Barbiturates Screen NEGATIVE NEGATIVE Ur Tricyclic Antidepressants Screen NEGATIVE NEGATIVE Urine Phencyclidine Screen NEGATIVE NEGATIVE Urine Amphetamines Screen NEGATIVE NEGATIVE Urine Methamphetamines Screen NEGATIVE NEGATIVE Urine Benzodiazepines Screen NEGATIVE NEGATIVE Urine Cocaine Screen NEGATIVE NEGATIVE Urine Cannabinoids Screen NEGATIVE NEGATIVE My Orders Orders - ROBIN PARHAM DO Saline Lock/Iv-Start (12/26/17 20:23) Ct Head/Cervical Spine Wo (12/26/17 20:23) Ct Thoracic Spine Wo (12/26/17 20:23) Alcohol (12/26/17 20:23) Cbc With Automated Diff (12/26/17 20:23) Comprehensive Metabolic Panel (12/26/17 20:23) Drug Screen Stat (Urine) (12/26/17 20:23) Ua Culture If Indicated (12/26/17 20:23) Saline Lock/Iv-Start (12/26/17 20:23) Lactated Ringers (Lr 1000 Ml Iv Solution (12/26/17 20:23) Ondansetron Injection (Zofran Injectio (12/26/17 20:30) Ketorolac Injection (Toradol Injection) (12/26/17 20:23) Cervical Collar (12/26/17 20:25) Rx-Naproxen (Rx-Naprosyn) (12/26/17 22:16) Rx-Tramadol Hcl (Rx-Ultram) (12/26/17 22:16) Rx-Naproxen (Rx-Naprosyn) (12/26/17 22:30) Rx-Tramadol Hcl (Rx-Ultram) (12/26/17 22:30) Iv Push Operations Vice President Ed (12/26/17 ) Medications Given in ED Vital Signs/I&O Progress Progress Note : Progress Note CERVICAL COLLAR REMOVED ON RECEIVING CT RESULTS BY RADIOLOGIST SYMPTOMS IMPROVED AT DISMISSAL AND PT FREELY MOVING HEAD/NECK Diagnostic Imaging Comments CT HEAD/CERVICAL SPINE--NO ACUTE PROCESS, SMALL BROAD BASED DISC PROTRUSION AT C6-7. PER RADIOLOGIST REPORT @ 2153 CT THORACIC SPINE--NO ACUTE PROCESS, PER RADIOLOGIST REPORT @ 2207 Reviewed: Reviewed by Me Departure Impression Primary Impression: Status post fall Additional Impression: HEAD, NECK AND UPPER BACK CONTUSION Disposition: HOME, SELF-CARE Condition: Improved Departure-Patient Inst. Referrals: [facility] Patient Instructions: Cervical Muscle Strain (DC), Contusion (DC), Minor Head Injury (DC), Preventing Falls, Upper Back Pain Add. Discharge Instructions: ICE TO SORE AREAS AT 20 MINUTE INTERVALS FOR FIRST 24 HOURS, THEN ALTERNATE ICE AND HEAT TO SORE AREAS AT 20 MINUTE INTERVALS ACTIVITIES TOLERATED FOLLOW UP WITH [facility] IN 5-7 DAYS IF NO BETTER Scripts Cyclobenzaprine HCl (Cyclobenzaprine HCl) 10 Mg Tablet 10 MG PO Q8H, #15 TAB Prov: ROBIN PARHAM DO 12/26/17 Naproxen (Naproxen) 500 Mg Tablet 500 MG PO BID, #20 TAB Prov: ROBIN PARHAM DO 12/26/17 Work/School Note: Work Release Form Date Seen in the Emergency Department: Dec 26, 2017 Return to Work: Dec 27, 2017 ROBIN PARHAM DO Dec 26, 2017 20:27
[2017-12-26] MEDS ORDERED: ONDANSETRON 4 MG/2 ML (SDV) Z0FRAN IVP ONE (20:30)
[2017-12-26 20:35] LABS: BASOPHILS % (AUTO) 1 % (0-10); EOSINOPHILS # (AUTO) 0.5 10^3/uL (0.0-0.3); EOSINOPHILS % (AUTO) 6 % (0-10); HEMATOCRIT 41 % (40-54); HEMOGLOBIN 14.5 G/DL (13.3-17.7); LYMPHOCYTES # (AUTO) 3.8 X 10^3 (1.0-4.0); LYMPHOCYTES % (AUTO) 50 % (12-44); MEAN CORPUSCULAR HEMOGLOBIN 32 PG (25-34); MEAN CORPUSCULAR HGB CONC 35 G/DL (32-36); MEAN CORPUSCULAR VOLUME 89 FL (80-99); MEAN PLATELET VOLUME 9.9 FL (7.4-10.4); MONOCYTES # (AUTO) 0.6 X 10^3 (0.0-1.0); MONOCYTES % (AUTO) 8 % (0-12); NEUTROPHILS # (AUTO) 2.8 X 10^3 (1.8-7.8); NEUTROPHILS % (AUTO) 36 % (42-75); PLATELET COUNT 205 10^3/uL (130-400); RED BLOOD COUNT 4.61 10^6/uL (4.35-5.85); RED CELL DISTRIBUTION WIDTH 12.9 % (10.0-14.5); WHITE BLOOD COUNT 7.7 10^3/uL (4.3-11.0)
[2017-12-26 20:59] LABS: ALANINE AMINOTRANSFERASE 11 U/L (0-55); ALBUMIN 4.1 GM/DL (3.2-4.5); ALKALINE PHOSPHATASE 102 U/L (40-136); BILIRUBIN,TOTAL 0.2 MG/DL (0.1-1.0); BUN/CREATININE RATIO 11; CARBON DIOXIDE 21 MMOL/L (21-32); CHLORIDE 107 MMOL/L (98-107); CREATININE SERUM 0.94 MG/DL (0.60-1.30); GFR ESTIMATED > 60; GLUCOSE 132 MG/DL (70-105); POTASSIUM 3.8 MMOL/L (3.6-5.0); SODIUM 139 MMOL/L (135-145); TOTAL PROTEIN 6.9 GM/DL (6.4-8.2)
[2017-12-26 21:36] LABS: BILIRUBIN,URINE NEGATIVE (NEGATIVE); CLARITY,URINE CLEAR; COLOR,URINE YELLOW; GLUCOSE, URINE (UA) NEGATIVE (NEGATIVE); KETONES,URINE NEGATIVE (NEGATIVE); LEUKOCYTE ESTERASE ,URINE 1+ (NEGATIVE); NITRITE,URINE NEGATIVE (NEGATIVE); PH,URINE 6 (5-9); PROTEIN,URINE NEGATIVE (NEGATIVE); UROBILINOGEN,URINE 1 MG/DL (NORMAL)
[2017-12-26 21:46] LABS: BACTERIA,URINE NEGATIVE /HPF; WBC,URINE RARE /HPF
--- NOTE | 2017-12-26 21:47 | Diagnostic Imaging Report ---
PROCEDURE: CT head and CT cervical spine without contrast. TECHNIQUE: Multiple contiguous axial images were obtained through the brain and cervical spine without the use of intravenous contrast. Sagittal and coronal reformations through the cervical spine were then performed. DATE: December 26, 2017. COMPARISON: None. INDICATION: 32-year-old male, fall getting out of shower. Head and neck pain. Blurry vision. FINDINGS: There is a polypoid lesion in the right maxillary sinus likely reflecting a mucous retention cyst. There is no air-fluid level in the paranasal sinuses. Mastoid air cells and middle ears are well-aerated. The ventricles and cerebral spinal fluid spaces are of normal size and configuration for the patient's age. There is no mass effect or midline shift. There is no acute intracranial hemorrhage. There is no abnormal extra-axial fluid collection. There is no identified facet joint subluxation or dislocation. There is no asymmetric widening of the cervical disc spaces. There is no prominent prevertebral soft tissue swelling. The cervical disc heights are well-preserved. CT is limited for assessment of disc pathology as well as assessment of other non-bony causes of foraminal and spinal stenosis. There does appear to be a small broad-based posterior disc protrusion at C6-C7. This is perhaps best illustrated on sagittal image 21 on soft tissue windows. There is no acute fracture of the cervical spine. There are upper lobe changes of mild paraseptal emphysema. IMPRESSION: 1. No identified acute intracranial abnormality. 2. No acute fracture or malalignment of the cervical spine. 3. Small broad-based posterior disc protrusion at C6-C7. Dictated by: Dictated on workstation # [id number]
[2017-12-26 21:48] LABS: AMPHETAMINE SCREEN, URINE NEGATIVE (NEGATIVE); BARBITURATE SCREEN URINE NEGATIVE (NEGATIVE); BENZODIAZEPINES SCREEN URINE NEGATIVE (NEGATIVE); CANNABINOID SCREEN, URINE NEGATIVE (NEGATIVE); COCAINE SCREEN URINE NEGATIVE (NEGATIVE); METHADONE STAT NEGATIVE (NEGATIVE); METHAMPHETAMINE SCREEN URINE S NEGATIVE (NEGATIVE); OPIATE SCREEN URINE NEGATIVE (NEGATIVE); OXYCODONE STAT NEGATIVE (NEGATIVE); PROPOXYPHENE STAT NEGATIVE (NEGATIVE); TRICYCLIC ANTIDEPRESSANTS SCRE NEGATIVE (NEGATIVE)
--- NOTE | 2017-12-26 21:54 | Diagnostic Imaging Report ---
PROCEDURE: CT thoracic spine without contrast. TECHNIQUE: Multiple axial computerized tomography images were obtained from the base of the thoracic spine to the vertex without intravenous contrast. DATE: December 26, 2017. INDICATION: 32-year-old male, mid back pain after fall out of shower. COMPARISON: None. FINDINGS: There is no identified acute fracture of the thoracic spine. The thoracic spine is normally aligned. There is no pronounced disc height loss. CT is limited for assessment of disc pathology as well as additional non-bony causes of foraminal and spinal stenosis. There are mild upper lobe changes of paraseptal emphysema. The visualized portions of the lungs are otherwise grossly clear. IMPRESSION: 1. No identified acute abnormality of the thoracic spine. Dictated by: Dictated on workstation # [id number]
[2017-12-26] MEDS ORDERED: NAPR-915 PO (22:15)
[2017-12-26] MEDS ORDERED: CYCL10TA9 PO (22:15)
[2017-12-26] MEDS ORDERED: RX-NAPROXEN (NAPROSYN) 250 MG TAB PPK#4 PO STA (22:16)
[2017-12-26] MEDS ORDERED: RX-TRAMADOL 50 MG (ULTRAM) TAB PPK#4 PO STA (22:16)
[2017-12-26] MEDS ORDERED: RX-TRAMADOL 50 MG (ULTRAM) TAB PPK#4 PO ONE (22:30)
[2017-12-26] MEDS ORDERED: RX-NAPROXEN (NAPROSYN) 250 MG TAB PPK#4 PO ONE (22:30)
[2017-12-26 22:38] VITALS: BP 124/69
== END 2017-12-26 22:45 | disposition home or self-care (01) ==
LOC: EDUNIT# 20:08 → ER 20:09
DX: S00.83XA Contusion of other part of head, initial encounter (principal); S10.93XA Contusion of unspecified part of neck, initial encounter; S20.229A Contusion of unspecified back wall of thorax, initial encounter; Z88.0 Allergy status to penicillin; Z88.2 Allergy status to sulfonamides; Z77.22 Contact with and (suspected) exposure to environmental tobacco smoke (acute) (chronic); W19.XXXA Unspecified fall, initial encounter
CPT/HCPCS: 36415; 70450; 72125; 72128; 80053; 80306; 80320; 81000; 85025; 96361; 96374; 96375

== ENCOUNTER 2018-02-01 12:05 | Emergency (ER) | payer SELFPAY ==
[~2018-02-01] VITALS: Ht 193 cm; Wt 83.9 kg
[~2018-02-01 12:05] MED LIST changes: +CYCL10TA9 PO; +NAPR-915 PO
[2018-02-01] MEDS ORDERED: NS IV 1000 ML 1,000 ML IV SCH (12:58)
[2018-02-01] MEDS ORDERED: ONDANSETRON 4 MG/2 ML (SDV) Z0FRAN IVP ONE (13:00)
--- NOTE | 2018-02-01 13:00 | ED General ---
General Chief Complaint: Cough/Cold/Flu Symptoms Stated Complaint: COUGHING,VOMITING Nursing Triage Note: PT STATES COUGH/CONGESTION FOR A WEEK, DIARRHEA AND VOMITING FOR 2 DAYS. Nursing Sepsis Screen: No Definite Risk Source of Information: Patient Exam Limitations: No Limitations History of Present Illness Date Seen by Provider: Feb 01, 2018 Time Seen by Provider: 12:59 Initial Comments 32-year-old male patient presents to the emergency department with complaints of a one-week onset of cough, yellow nasal drainage, chest congestion, and sore throat. Patient reports 2 days ago he began having diarrhea, nausea, and vomiting. Vomiting is worse with eating. Denies fevers or chills. Denies taking pgzf-dnz-qszjued medications for symptoms. Timing/Duration: 1 Week, Changing Over Time Modifying Factors: worse with Eating Allergies and Home Medications Allergies Uncoded Allergies: PENICILLIN (Allergy, Unknown, 01/05/17) SULFA (Allergy, Unknown, 01/05/17) Home Medications Albuterol Sulfate 6.7 Gm Hfa.aer.ad, 2 PUFF IH Q6H PRN for SHORTNESS OF BREATH Prescribed by: ETHAN GRAJEDA on 02/01/18 1512 Benzonatate 100 Mg Capsule, 1-2 CAP PO Q8H PRN for COUGH Prescribed by: ETHAN GRAJEDA on 02/01/18 1517 Cyclobenzaprine HCl 10 Mg Tablet, 10 MG PO Q8H Prescribed by: ROBIN PARHAM on 12/26/17 221 Doxycycline Hyclate 100 Mg Tablet, 100 MG PO BID Prescribed by: CALVIN MCMANUS on 01/17/17 1630 Minocycline HCl 100 Mg Capsule, 100 MG PO BID Prescribed by: ETHAN GRAJEDA on 02/01/18 1520 Naproxen 500 Mg Tablet, 500 MG PO BID Prescribed by: ROBIN PARHAM on 12/26/17 2215 Ondansetron 8 Mg Tab.rapdis, 8 MG SL Q6H PRN for NAUSEA/VOMITING-1ST LINE Prescribed by: ETHAN GRAJEDA on 02/01/18 151 Prednisone 20 Mg Tab, 40 MG PO DAILY Prescribed by: ETHAN GRAJEDA on 02/01/18 1512 Tramadol HCl 50 Mg Tablet, 50 MG PO Q8H PRN for PAIN-MODERATE Prescribed by: NELLIE AVILA on 01/05/17 1624 Tramadol HCl 50 Mg Tablet, 50 MG PO Q6H PRN for PAIN-SEVERE Do not fill unless Doxycycline is also filled. Prescribed by: CALVIN MCMANUS on 01/17/17 1630 Patient Home Medication List Home Medication List Reviewed: Yes Review of Systems Review of Systems Constitutional: see HPI; No chills, No dizziness, No fever; malaise EENTM: see HPI, nose congestion, throat pain; No ear discharge, No ear pain, No mouth pain, No nose pain, No throat swelling Respiratory: see HPI, cough, phlegm; No short of breath; wheezing (occasional wheezing) Cardiovascular: No chest pain, No palpitations, No syncope Gastrointestinal: No abdominal pain, No constipation; diarrhea; No hematemesis ; loss of appetite; No melena; nausea, vomiting Genitourinary: no symptoms reported Musculoskeletal: no symptoms reported Skin: no symptoms reported Psychiatric/Neurological: No Symptoms Reported All Other Systems Reviewed Negative Unless Noted: Yes (Negative excepted noted.) Past Mgkpget-Rlenma-Pjbusy Hx Past Med/Social Hx: Reviewed Nursing Past Med/Soc Hx Patient Social History Alcohol Use: Denies Use Recreational Drug Use: Yes (02/01/18 CLEAN FOR 4 MONTHS) Drug of Choice: + IV METH AND HEROIN, THC Smoking Status: Current Someday Smoker Type Used: Cigarettes 2nd Hand Smoke Exposure: Yes Recent Foreign Travel: No Contact w/Someone Who Travel: No Recent Infectious Disease Expo: No Recent Hopitalizations: No Immunizations Up To Date Tetanus Booster (TDap): Less than 5yrs PED Vaccines UTD: Yes Seasonal Allergies Seasonal Allergies: Yes Past Medical History Surgeries: No Respiratory: Yes Asthma Cardiac: No Neurological: No Genitourinary: No Gastrointestinal: No Musculoskeletal: Yes Chronic Back Pain Endocrine: No HEENT: No Cancer: No Psychosocial: Yes (POLYSUBSTANCE ABUSE) Bipolar Integumentary: No Blood Disorders: No Family Medical History Reviewed Nursing Family Hx No Pertinent Family Hx Physical Exam Vital Signs Vital Signs - First Documented 02/01/18 02/01/18 12:40 15:20 Temp 97.2 Pulse 70 Resp 20 B/P (MAP) 130/80 (97) Pulse Ox 97 O2 Delivery Room Air Capillary Refill : Less Than 3 Seconds Height, Weight, BMI Height: 6'4.00" Weight: 185lbs. oz. 83.108257aw; BMI Method:Stated General Appearance: No Apparent Distress, WD/WN HEENT: PERRL/EOMI, TMs Normal, Pharyngeal Erythema; No Tonsillar Exudate, No Tonsillar Enlargement; Other (positive nasal congestion. ) Neck: Full Range of Motion, Normal Inspection, Non Tender, Supple Respiratory: Lungs Clear, Normal Breath Sounds, No Accessory Muscle Use, No Respiratory Distress Cardiovascular: Regular Rate, Rhythm, No Edema, No Murmur, Normal Peripheral Pulses Gastrointestinal: Normal Bowel Sounds, No Organomegaly, Non Tender, Soft; No Distended Back: Normal Inspection Extremity: Normal Capillary Refill, No Pedal Edema Neurologic/Psychiatric: Alert, Oriented x3, Normal Mood/Affect Skin: Normal Color, Warm/Dry Progress/Results/Core Measures Suspected Sepsis Recent Fever Within 48 Hours: Yes Infection Criteria Present: Suspected New Infection New/Unexplained Altered Menta: No Sepsis Screen: No Definite Risk SIRS Temperature:97.2 Pulse: 70 Respiratory Rate: 20 Laboratory Tests 02/01/18 13:00: White Blood Count 7.3 Blood Pressure 130 /80 Mean: 97 Laboratory Tests 02/01/18 13:00: Creatinine 0.91, Platelet Count 210, Total Bilirubin 0.3 Results/Orders Lab Results Laboratory Tests Test 02/01/18 13:00 02/01/18 14:10 Range/Units White Blood Count 7.3 4.3-11.0 10^3/uL Red Blood Count 4.48 4.35-5.85 10^6/uL Hemoglobin 13.8 13.3-17.7 G/DL Hematocrit 40 40-54 % Mean Corpuscular Volume 90 80-99 FL Mean Corpuscular Hemoglobin 31 25-34 PG Mean Corpuscular Hemoglobin Concent 34 32-36 G/DL Red Cell Distribution Width 12.8 10.0-14.5 % Platelet Count 210 130-400 10^3/uL Mean Platelet Volume 9.6 7.4-10.4 FL Neutrophils (%) (Auto) 58 42-75 % Lymphocytes (%) (Auto) 29 12-44 % Monocytes (%) (Auto) 8 0-12 % Eosinophils (%) (Auto) 4 0-10 % Basophils (%) (Auto) 0 0-10 % Neutrophils # (Auto) 4.3 1.8-7.8 X 10^3 Lymphocytes # (Auto) 2.2 1.0-4.0 X 10^3 Monocytes # (Auto) 0.6 0.0-1.0 X 10^3 Eosinophils # (Auto) 0.3 0.0-0.3 10^3/uL Basophils # (Auto) 0.0 0.0-0.1 10^3/uL Sodium Level 138 135-145 MMOL/L Potassium Level 4.3 3.6-5.0 MMOL/L Chloride Level 105 98-107 MMOL/L Carbon Dioxide Level 25 21-32 MMOL/L Anion Gap 8 5-14 MMOL/L Blood Urea Nitrogen 15 7-18 MG/DL Creatinine 0.91 0.60-1.30 MG/DL Estimat Glomerular Filtration Rate > 60 BUN/Creatinine Ratio 16 Glucose Level 91 70-105 MG/DL Calcium Level 8.9 8.5-10.1 MG/DL Corrected Calcium 8.9 8.5-10.1 MG/DL Total Bilirubin 0.3 0.1-1.0 MG/DL Aspartate Amino Transf (AST/SGOT) 11 5-34 U/L Alanine Aminotransferase (ALT/SGPT) 14 0-55 U/L Alkaline Phosphatase 78 40-136 U/L C-Reactive Protein High Sensitivity 0.46 0.00-0.50 MG/DL Total Protein 6.7 6.4-8.2 GM/DL Albumin 4.0 3.2-4.5 GM/DL Urine Color YELLOW Urine Clarity CLEAR Urine pH 6 5-9 Urine Specific [place] 1.010 L 1.016-1.022 Urine Protein NEGATIVE NEGATIVE Urine Glucose (UA) NEGATIVE NEGATIVE Urine Ketones NEGATIVE NEGATIVE Urine Nitrite NEGATIVE NEGATIVE Urine Bilirubin NEGATIVE NEGATIVE Urine Urobilinogen NORMAL NORMAL MG/DL Urine Leukocyte Esterase NEGATIVE NEGATIVE Urine RBC (Auto) 1+ H NEGATIVE Urine RBC RARE /HPF Urine WBC RARE /HPF Urine Squamous Epithelial Cells 0-2 /HPF Urine Crystals NONE /LPF Urine Bacteria NEGATIVE /HPF Urine Casts NONE /LPF Urine Mucus NEGATIVE /LPF Urine Culture Indicated NO Micro Results Microbiology 02/01/18 Influenza Types A,B Antigen ([facility]) - Final, Complete My Orders Orders - ETHAN GRAJEDA Saline Lock/Iv-Start (02/01/18 12:58) Cbc With Automated Diff (02/01/18 12:58) Comprehensive Metabolic Panel (02/01/18 12:58) Hs C Reactive Protein (10/18/18 12:58) Ua Culture If Indicated (02/01/18 12:58) Ns Iv 1000 Ml (Sodium Chloride 0.9%) (02/01/18 12:58) Ondansetron Injection (Zofran Injectio (02/01/18 13:00) Influenza A And B Antigens (02/01/18 12:58) Medications Given in ED Current Medications Medications Dose Ordered Sig/Erasmo Route Start Time Stop Time Status Last Admin Dose Admin Ondansetron HCl 4 mg ONCE ONCE IVP 02/01/18 13:00 02/01/18 13:01 DC 02/01/18 13:09 4 MG Vital Signs/I&O 02/01/18 02/01/18 02/01/18 12:40 12:44 15:20 Temp 97.2 97.2 Pulse 70 79 Resp 20 20 B/P (MAP) 130/80 (97) 110/72 (85) Pulse Ox 97 O2 Delivery Room Air Room Air Room Air Capillary Refill : Less Than 3 Seconds Blood Pressure Mean: 97 Departure Communication (Admissions) Laboratory findings discussed with the patient. Patient reports feeling better with IV fluids and medications. Plan for discharge to home. Patient to follow- up with his primary care provider if no improvement in symptoms. Impression Primary Impression: Upper respiratory infection Qualified Codes: J06.9 - Acute upper respiratory infection, unspecified Additional Impression: Nausea, vomiting, and diarrhea Disposition: HOME, SELF-CARE Condition: Improved Departure-Patient Inst. Decision time for Depature: 15:10 Referrals: NO,LOCAL PHYSICIAN (PCP/Family) Primary Care Physician Patient Instructions: Bacterial Upper Respiratory Infection, Adult (DC), Nausea and Vomiting, Adult Add. Discharge Instructions: All discharge instructions reviewed with patient and/or family. Voiced understanding. Medications as instructed. Tylenol extra strength over-the- counter as directed for pain or fever. Ibuprofen 800 mg by mouth every 8 hours as needed for pain or fever. Drink plenty of fluids. Clear liquid diet until symptoms improve, then increase diet slowly as tolerated. Alternate water with Powerade or Gatorade. Gwzv-qvf-mrsjdee antihistamines, decongestants, and cough suppressants as directed by the leather softener for symptoms. Follow-up with your family practitioner if no improvement in symptoms. Return to the emergency department for worsened symptoms or any other concerns. Scripts Minocycline HCl (Minocycline HCl) 100 Mg Capsule 100 MG PO BID, #14 CAP 0 Refills Prov: ETHAN GRAJEDA 02/01/18 Benzonatate (Benzonatate) 100 Mg Capsule 1-2 CAP PO Q8H PRN for COUGH, #30 CAP 1 Refill Prov: ETHAN GRAJEDA 02/01/18 Albuterol Sulfate (Proventil Hfa) 6.7 Gm Hfa.aer.ad 2 PUFF IH Q6H PRN for SHORTNESS OF BREATH, #1 EACH 0 Refills Prov: ETHAN GRAJEDA 02/01/18 Prednisone (Prednisone) 20 Mg Tab 40 MG PO DAILY, #10 TAB 0 Refills Prov: ETHAN GRAJEDA 02/01/18 Ondansetron (Zofran Odt) 8 Mg Tab.rapdis 8 MG SL Q6H PRN for NAUSEA/VOMITING-1ST LINE, #10 TAB 0 Refills Prov: ETHAN GRAJEDA 02/01/18 Work/School Note: Local Medical Staff Listing, Work Release Form Date Seen in the Emergency Department: Feb 01, 2018 Return to Work: Feb 03, 2018 Restrictions: Return-No Fever (24hrs), Return-No Vomiting(24hrs) ETHAN GRAJEDA Feb 01, 2018 13:00
[2018-02-01 13:08] LABS: BASOPHILS % (AUTO) 0 % (0-10); EOSINOPHILS # (AUTO) 0.3 10^3/uL (0.0-0.3); EOSINOPHILS % (AUTO) 4 % (0-10); HEMATOCRIT 40 % (40-54); HEMOGLOBIN 13.8 G/DL (13.3-17.7); LYMPHOCYTES # (AUTO) 2.2 X 10^3 (1.0-4.0); LYMPHOCYTES % (AUTO) 29 % (12-44); MEAN CORPUSCULAR HEMOGLOBIN 31 PG (25-34); MEAN CORPUSCULAR HGB CONC 34 G/DL (32-36); MEAN CORPUSCULAR VOLUME 90 FL (80-99); MEAN PLATELET VOLUME 9.6 FL (7.4-10.4); MONOCYTES # (AUTO) 0.6 X 10^3 (0.0-1.0); MONOCYTES % (AUTO) 8 % (0-12); NEUTROPHILS # (AUTO) 4.3 X 10^3 (1.8-7.8); NEUTROPHILS % (AUTO) 58 % (42-75); PLATELET COUNT 210 10^3/uL (130-400); RED BLOOD COUNT 4.48 10^6/uL (4.35-5.85); RED CELL DISTRIBUTION WIDTH 12.8 % (10.0-14.5); WHITE BLOOD COUNT 7.3 10^3/uL (4.3-11.0)
--- OUTSIDE RECORDS SUMMARY | 2018-02-01 13:09 | XMS REPORT ---
Author Author VIKTORIYA LITTLE [facility] Address [address] [place] [address] Care Team Providers Care Commercial Property Administrator Name Role Phone VIKTORIYA LITTLE Unavailable PROBLEMS Type Condition ICD9-CM Code XRB04-GV Code Onset Dates Condition Status SNOMED Code Problem Tinea versicolor B36.0 Active 33935611 Problem Acute suppurative otitis media of right ear without spontaneous rupture of tympanic membrane, recurrence not specified H66.001 Active 70728989 Problem Cannabis use disorder, moderate, dependence F12.20 Active 84463752 Problem Methamphetamine use disorder, severe, 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 Active Problem Unspecified mood [affective] disorder F39 Active 24994812 Problem Pneumonia of right lower lobe due to infectious organism J18.1 Active 014233586 Problem Panic disorder F41.0 Active 383508821 Problem Polysubstance abuse F19.10 Active 281977930 ALLERGIES No Information ENCOUNTERS Encounter Location Date Diagnosis [facility] [id number] [place] [address] Jan, [facility] [address] [place] [address] Dec, [facility] [id number] [place] [address] Dec, Unspecified mood [affective] disorder F39 ; Polysubstance abuse F19.10 and Panic disorder F41.0 [facility] [address] [place] [address] Nov, Methamphetamine use disorder, severe, 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 ; Heroin use disorder, severe F11.20 and Cannabis use disorder, moderate, dependence F12.20 [facility] [id number] [place] [address] Nov, Tinea versicolor B36.0 [facility] [id number] [address] Nov, Unspecified mood [affective] disorder F39 ; Polysubstance abuse F19.10 and Panic disorder F41.0 [facility] [address] [address] Nov, [facility] [id number] [place] [address] Nov, [facility] [id number] [place] [address] Oct, Unspecified mood [affective] disorder F39 ; Polysubstance abuse F19.10 and Panic disorder F41.0 [facility] [address] [place] [address] Oct, Tinea versicolor B36.0 [facility] [id number] [place] [address] Sep, Unspecified mood [affective] disorder F39 ; Polysubstance abuse F19.10 and Panic disorder F41.0 [facility] [address] [place] [id number] Sep, Dental examination Z01.20 [facility] [address], [place] [address] Sep, Unspecified mood [affective] disorder F39 and Polysubstance abuse F19.[address] [facility] [address] [id number] [id number] August, [facility] [address] [id number] [id number] August, Pneumonia of right lower lobe due to infectious organism J18.1 [facility] [address] [id number] [id number] Oct, [facility] [address] [id number] [id number] August, Acute suppurative otitis media of right ear without spontaneous rupture of tympanic membrane, recurrence not specified H66.001 and Tinea versicolor B36.[address] [id number] [id number] Sep, 2014 Dental examination V72.2 [facility] [address], [place] [address] 14 Jul, 2014 [facility] [id number] [place] [address] Jul, [facility] [address] [place] [address] Sep, [facility] [id number] [place] [phone] Oct, [facility] [address], [place] [address] May, [facility] [address] [place] [id number] Mar, IMMUNIZATIONS No Known Immunizations SOCIAL HISTORY Never Assessed REASON FOR VISIT Brief PLAN OF CARE VITAL SIGNS MEDICATIONS Unknown Medications RESULTS No Results PROCEDURES Procedure Date Ordered Result Body Site Alcohol and/or drug services Nov 22, 2017 Alcohol and/or drug services Nov 22, 2017 INSTRUCTIONS MEDICATIONS ADMINISTERED No Known Medications MEDICAL (GENERAL) HISTORY Type Description Date Medical History asthma Hospitalization History [facility] pneumonia 08/30/2017
--- OUTSIDE RECORDS SUMMARY | 2018-02-01 13:09 | XMS REPORT ---
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 Active Problem Unspecified mood [affective] disorder F39 Active 29377854 Problem Pneumonia of right lower lobe due to infectious organism J18.1 Active 080504998 Problem Panic disorder F41.0 Active 914228621 Problem Polysubstance abuse F19.10 Active 870973578 ALLERGIES Substance Reaction Event Type Date Status Penicillin G Sodium Unknown Drug Allergy Nov, Active Sulfa Unknown Non Drug Allergy Nov, Active ENCOUNTERS Encounter Location Date Diagnosis [facility] [id number] [place] [address] Jan, [facility] [address] [place] [address] Dec, [facility] [id number] [place] [address] Dec, Unspecified mood [affective] disorder F39 ; Polysubstance abuse F19.10 and Panic disorder F41.0 [facility] [address] [place] [address] Nov, Methamphetamine use disorder, severe, 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 ; Heroin use disorder, severe F11.20 and Cannabis use disorder, moderate, dependence F12.20 [facility] [id number] [place] [address] Nov, Tinea versicolor B36.0 [facility] [address] [place] [address] Nov, Unspecified mood [affective] disorder F39 ; Polysubstance abuse F19.10 and Panic disorder F41.0 [facility] [address] [place] [address] Nov, [facility] [id number] [place] [address] Nov, [facility] [id number] [place] [address] Oct, Unspecified mood [affective] disorder F39 ; Polysubstance abuse F19.10 and Panic disorder F41.0 [facility] [address] [place] [address] Oct, Tinea versicolor B36.0 [facility] [address] [place] [address] Sep, Unspecified mood [affective] disorder F39 ; Polysubstance abuse F19.10 and Panic disorder F41.0 [facility] [address] [id number] Sep, Dental examination Z01.20 [facility] [address] [place] [address] Sep, Unspecified mood [affective] disorder F39 and Polysubstance abuse F19.10 [facility] [id number] [place] [phone] August, [facility] [address] [id number] [place] [id number] August, Pneumonia of right lower lobe due to infectious organism J18.1 [facility] [address] [id number] [id number] Oct, [facility] [address] [id number] [place] [id number] August, Acute suppurative otitis media of right ear without spontaneous rupture of tympanic membrane, recurrence not specified H66.001 and Tinea versicolor B36.[address] [id number] [place] [id number] Sep, Dental examination V72.2 [address], [place] [address] Jul, [facility] [address], [place] [address] Jul, [address], [place] [address] Sep, [address], [place] [address] Oct, [address], [place] [address] May, [id number], [place] [address] Mar, IMMUNIZATIONS No Known Immunizations SOCIAL HISTORY Never Assessed REASON FOR VISIT f/u Alexia PLAN OF CARE Activity Details Follow Up 3 Weeks Reason: f/u VITAL SIGNS Height 75 in 2017-11-23 Weight 187.2 lbs 2017-11-23 Heart Rate 100 bpm 2017-11-23 Respiratory Rate 20 2017-11-23 BMI 23.40 kg/m2 2017-11-23 Blood pressure systolic 118 mmHg 2017-11-23 Blood pressure diastolic 68 mmHg 2017-11-23 MEDICATIONS Medication Instructions Dosage Frequency Start Date End Date Duration Status Naltrexone HCl 50 MG Orally Once a day 1/2 tablet 24h Nov, 30 day(s) Active ProAir HFA 108 (90 Base) MCG/ACT Inhalation 4 times a day 2 puffs 6h August 07 days Active Remeron 30 MG Orally Once a day at bedtime 1 tablet Oct, 30 days Active Trileptal 300 MG Orally once a day in the morning and 2 tablets at bedtime 1 tablet 30 days Active RESULTS No Results PROCEDURES No Known procedures INSTRUCTIONS MEDICATIONS ADMINISTERED No Known Medications MEDICAL (GENERAL) HISTORY Type Description Date Medical History asthma Hospitalization History [facility] pneumonia 08/30/2017
--- OUTSIDE RECORDS SUMMARY | 2018-02-01 13:09 | XMS REPORT ---
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 Active Problem Unspecified mood [affective] disorder F39 Active 93530138 Problem Pneumonia of right lower lobe due to infectious organism J18.1 Active 445114266 Problem Panic disorder F41.0 Active 697005647 Problem Polysubstance abuse F19.10 Active 243907262 ALLERGIES Substance Reaction Event Type Date Status Penicillin G Sodium Unknown Drug Allergy Dec, Active Sulfa Unknown Non Drug Allergy Dec, Active ENCOUNTERS Encounter Location Date Diagnosis [facility] [address] [place] [address] Jan, [facility] [address] [place] [address]25[address] 80[address] Jan, [facility] [address] [place] [address] Dec, [facility] [address] [place] [address] Dec, Methamphetamine use disorder, severe, 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 and Cannabis use disorder, moderate, dependence F12.20 [facility] [id number] [place] [address] 74143[address] 4590 Dec, Unspecified mood [affective] disorder F39 ; Polysubstance abuse F19.10 and Panic disorder F41.0 [facility] [address] [place] [address] Nov, Methamphetamine use disorder, severe, 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 ; Heroin use disorder, severe F11.20 and Cannabis use disorder, moderate, dependence F12.20 [facility] [address] [place] [address] 22500- 7688 Nov, Tinea versicolor B36.0 [facility] [id number] [place] [address] 85693- 7599 Nov, Unspecified mood [affective] disorder F39 ; Polysubstance abuse F19.10 and Panic disorder F41.0 [facility] [id number] [place] [address] 32140- 6669 Nov, [facility] [id number] [place] [address] 57622- 6707 Nov, [facility] [id number] [place] [address] 56274- 3283 Oct, Unspecified mood [affective] disorder F39 ; Polysubstance abuse F19.10 and Panic disorder F41.0 [facility] [id number] [place] [address] 63399- 8121 Oct, Tinea versicolor B36.0 [facility] [address] [place] [address] 84751- 2545 Sep, Unspecified mood [affective] disorder F39 ; Polysubstance abuse F19.10 and Panic disorder F41.0 [facility] [address] [place] [id number] Sep, Dental examination Z01.20 [facility] [address] [place] [address] 86590- 2887 Sep, Unspecified mood [affective] disorder F39 and Polysubstance abuse F19.10 [facility] [address] [id number] [place] [id number] August, [facility] [address] [id number] [place] [id number] August, Pneumonia of right lower lobe due to infectious organism J18.1 [facility] [address] [place] [address] [id number] [place] [id number] Oct, [facility] [address] [id number] [place] [id number] August, Acute suppurative otitis media of right ear without spontaneous rupture of tympanic membrane, recurrence not specified H66.001 and Tinea versicolor B36.[address] [id number] [place] [id number] Sep, Dental examination V72.2 [facility] [address], [place] [address] Jul, [facility] [id number] [address] Jul, [facility] [address] [place] [address] 13145- 0538 Sep, [facility] [address], [place] [address] Oct, [facility] [address], [place] [address] May, [facility] [address], [place] [address] Mar, IMMUNIZATIONS No Known Immunizations SOCIAL HISTORY Never Assessed REASON FOR VISIT Psychiatric f/u Alexia PLAN OF CARE Activity Details Follow Up 3 Weeks Reason:BH f/u VITAL SIGNS Height 75 in 2017-12-19 Weight 181.3 lbs 2017-12-19 Heart Rate 88 bpm 2017-12-19 Respiratory Rate 20 2017-12-19 BMI 22.66 kg/m2 2017-12-19 Blood pressure systolic 108 mmHg 2017-12-19 Blood pressure diastolic 64 mmHg 2017-12-19 MEDICATIONS Medication Instructions Dosage Frequency Start Date End Date Duration Status ProAir HFA 108 (90 Base) MCG/ACT Inhalation 4 times a day 2 puffs 6h August 07 days Active Remeron 15 MG Orally Once a day at bedtime 1.5 tablets Oct, 30 days Active Trileptal 300 MG Orally once a day in the morning and 2 tablets at bedtime 1 tablet Active Naltrexone HCl 50 MG Orally Once a day 1/2 tablet 24h Nov, Active RESULTS No Results PROCEDURES No Known procedures INSTRUCTIONS MEDICATIONS ADMINISTERED No Known Medications MEDICAL (GENERAL) HISTORY Type Description Date Medical History asthma Hospitalization History [facility] pneumonia 08/30/2017
--- OUTSIDE RECORDS SUMMARY | 2018-02-01 13:09 | XMS REPORT ---
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 Active Problem Unspecified mood [affective] disorder F39 Active 60106016 Problem Pneumonia of right lower lobe due to infectious organism J18.1 Active 991148737 Problem Panic disorder F41.0 Active 381071329 Problem Polysubstance abuse F19.10 Active 933058427 ALLERGIES No Information ENCOUNTERS Encounter Location Date Diagnosis [facility] [id number] [place] [address]75[address] 8580 Jan, [facility] [address] [place] [address] Dec, [facility] [id number] [place] [address] 68572- 6406 Dec, Unspecified mood [affective] disorder F39 ; Polysubstance abuse F19.10 and Panic disorder F41.0 [facility] [address] [place] [address] Nov, Methamphetamine use disorder, severe, 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 ; Heroin use disorder, severe F11.20 and Cannabis use disorder, moderate, dependence F12.20 [facility] [id number] [place] [address] 65337- 4798 Nov, Tinea versicolor B36.0 [facility] [address] [id number] [address] Nov, Unspecified mood [affective] disorder F39 ; Polysubstance abuse F19.10 and Panic disorder F41.0 [facility] [address] [address] Nov, [facility] [id number] [place] [address] 83509- 4561 Nov, [facility] [id number] [place] [address] 75524- 4436 Oct, Unspecified mood [affective] disorder F39 ; Polysubstance abuse F19.10 and Panic disorder F41.0 [facility] [address] [place] [address] 75353- 8037 Oct, Tinea versicolor B36.0 [facility] [id number] [place] [address] 18516- 5489 Sep, Unspecified mood [affective] disorder F39 ; Polysubstance abuse F19.10 and Panic disorder F41.0 [facility] [address] [place] [id number] Sep, Dental examination Z01.20 [facility] [address] [address] Sep, Unspecified mood [affective] disorder F39 and Polysubstance abuse F19.10 [facility] [id number][place] [id number] August, [facility] [address] [id number][place] [id number] August, Pneumonia of right lower lobe due to infectious organism J18.1 [facility] [address] [address] [id number], [place] [id number] Oct, [facility] [address] [id number][place] [id number] August, Acute suppurative otitis media of right ear without spontaneous rupture of tympanic membrane, recurrence not specified H66.001 and Tinea versicolor B36.[address] [id number][place] [id number] 09 Sep, 2014 Dental examination V72.2 [facility] [address] [address] Jul, [facility] [id number] [place] [address] 03179- 6802 Jul, [facility] [address] [place] [address] 11816- 7986 Sep, [facility] [id number] [place] [address] 17013- 9614 Oct, [facility] [address] [address] 3709 May, [facility] [address] [place] [address] 76838265- 5677 Mar, IMMUNIZATIONS No Known Immunizations SOCIAL HISTORY Never Assessed REASON FOR VISIT Intake PLAN OF CARE VITAL SIGNS MEDICATIONS Unknown Medications RESULTS No Results PROCEDURES No Known procedures INSTRUCTIONS MEDICATIONS ADMINISTERED No Known Medications MEDICAL (GENERAL) HISTORY Type Description Date Medical History asthma Hospitalization History [facility] pneumonia 08/30/2017
--- OUTSIDE RECORDS SUMMARY | 2018-02-01 13:09 | XMS REPORT ---
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 Active Problem Unspecified mood [affective] disorder F39 Active 17973837 Problem Pneumonia of right lower lobe due to infectious organism J18.1 Active 389939465 Problem Panic disorder F41.0 Active 596542153 Problem Polysubstance abuse F19.10 Active 561130114 ALLERGIES Substance Reaction Event Type Date Status Penicillin G Sodium Unknown Drug Allergy Jan, Active Sulfa Unknown Non Drug Allergy Jan, Active ENCOUNTERS Encounter Location Date Diagnosis [facility] [id number] [place] [address] 71599- 1502 Feb, [facility] [id number] [place] [address] 54670- 3413 Feb, [facility] [id number] [place] [address] 66151- 4606 Jan, Unspecified mood [affective] disorder F39 ; Polysubstance abuse F19.10 and Panic disorder F41.0 [facility] [address] [place] [address] Dec, [facility] [address] [place] [address] Dec, Methamphetamine use disorder, severe, 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 and Cannabis use disorder, moderate, dependence F12.20 [facility] [address] [place] [address] 08135- 8489 Dec, Unspecified mood [affective] disorder F39 ; Polysubstance abuse F19.10 and Panic disorder F41.0 [facility] [address] [place] [address] Nov, Methamphetamine use disorder, severe, 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 ; Heroin use disorder, severe F11.20 and Cannabis use disorder, moderate, dependence F12.20 [facility] [id number] [place] [address] 99867- 6311 Nov, Tinea versicolor B36.0 [facility] [id number] [place] [address] 09071- 4368 Nov, Unspecified mood [affective] disorder F39 ; Polysubstance abuse F19.10 and Panic disorder F41.0 [facility] [id number] [place] [address] 33657- 5894 Nov, [facility] [id number] [place] [address] 26910- 4624 Nov, [facility] [id number] [place] [address] 81996- 4230 Oct, Unspecified mood [affective] disorder F39 ; Polysubstance abuse F19.10 and Panic disorder F41.0 [facility] [id number] [place] [address] 05702- 2363 Oct, Tinea versicolor B36.0 [facility] [id number] [place] [address] 35389- 7783 Sep, Unspecified mood [affective] disorder F39 ; Polysubstance abuse F19.10 and Panic disorder F41.0 [facility] [address] [place] [address] [id number] Sep, Dental examination Z01.20 [facility] [id number] [place] [address] 03120- 2405 Sep, Unspecified mood [affective] disorder F39 and Polysubstance abuse F19.10 [facility] [address] [facility] [id number][place] [id number] August, [facility] Hope [facility] [address] [id number], [place] [id number] August, Pneumonia of right lower lobe due to infectious organism J18.1 [facility] Jayy [facility] [id number], [place] [id number] Oct, [facility] Hope [facility] [address] [id number][place] [id number] August, Acute suppurative otitis media of right ear without spontaneous rupture of tympanic membrane, recurrence not specified H66.001 and Tinea versicolor B36.0 [facility] [address] [place] [address] [id number], [place] [id number] Sep, Dental examination V72.2 [facility] [id number] [place] [address] 98273- 1681 Jul, [facility] [id number] [place] [address] 25932- 1932 Jul, [facility] [id number] [place] [address] 94993- 3782 Sep, [facility] [id number] [place] [address] 10054- 9856 Oct, [facility] [id number] [place] [address] 32732- 5561 May, [facility] [id number] [place] [address] 39091- 0655 Mar, IMMUNIZATIONS No Known Immunizations SOCIAL HISTORY Never Assessed REASON FOR VISIT OSCAR f/u- AB/MA PLAN OF CARE Activity Details Follow Up 4 Weeks Reason:OSCAR f/u VITAL SIGNS Height 75 in 2018-01-15 Weight 172.2 lbs 2018-01-15 Heart Rate 65 bpm 2018-01-15 Respiratory Rate 20 2018-01-15 BMI 21.52 kg/m2 2018-01-15 Blood pressure systolic 122 mmHg 2018-01-15 Blood pressure diastolic 72 mmHg 2018-01-15 MEDICATIONS Medication Instructions Dosage Frequency Start Date End Date Duration Status Naltrexone HCl 50 MG Orally Once a day 1/2 tablet 24h Nov, Active Remeron 15 MG Orally Once a day at bedtime 1.5 tablets Oct, Active ProAir HFA 108 (90 Base) MCG/ACT Inhalation 4 times a day 2 puffs 6h August 7 days Active Trileptal 300 MG Orally once a day in the morning and 2 tablets at bedtime 1 tablet Active RESULTS No Results PROCEDURES No Known procedures INSTRUCTIONS MEDICATIONS ADMINISTERED No Known Medications MEDICAL (GENERAL) HISTORY Type Description Date Medical History asthma Surgical History No Surgical history information Hospitalization History [facility] pneumonia 08/30/2017
--- OUTSIDE RECORDS SUMMARY | 2018-02-01 13:09 | XMS REPORT ---
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 Active Problem Unspecified mood [affective] disorder F39 Active 04344114 Problem Pneumonia of right lower lobe due to infectious organism J18.1 Active 581880759 Problem Panic disorder F41.0 Active 819741771 Problem Polysubstance abuse F19.10 Active 302563942 ALLERGIES No Information ENCOUNTERS Encounter Location Date Diagnosis [facility] [id number] [place] [address] 69432- 8838 Jan, [facility] [address] [place] [address] Dec, [facility] [id number] [place] [address] 38297- 0658 Dec, Unspecified mood [affective] disorder F39 ; Polysubstance abuse F19.10 and Panic disorder F41.0 [facility] [address] [place] [address] Nov, Methamphetamine use disorder, severe, 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 ; Heroin use disorder, severe F11.20 and Cannabis use disorder, moderate, dependence F12.20 [facility] [id number] [place] [address] 17942- 6270 Nov, Tinea versicolor B36.0 [facility] [address]100[place], [place] [address]- 9670 Nov, Unspecified mood [affective] disorder F39 ; Polysubstance abuse F19.10 and Panic disorder F41.0 [facility] [address], [place] [address]- 9857 Nov, [facility] [address] [place] [address] 75301- 4392 Nov, [facility] [address] [place] [address] 15802- 0486 Oct, Unspecified mood [affective] disorder F39 ; Polysubstance abuse F19.10 and Panic disorder F41.0 [facility] [address]100[place], [place] [address]- 0298 Oct, Tinea versicolor B36.0 [facility] [address] [place] [address] 78720- 6991 Sep, Unspecified mood [affective] disorder F39 ; Polysubstance abuse F19.10 and Panic disorder F41.0 [facility] [address] [place] [address] [id number] Sep, Dental examination Z01.20 [facility] [address], [place] [address] 3483 Sep, Unspecified mood [affective] disorder F39 and Polysubstance abuse F19.10 [facility] [address] [id number] [place] [id number] August, [facility] [address] [id number] [place] [id number] August, Pneumonia of right lower lobe due to infectious organism J18.1 [facility] [id number] [place] [id number] Oct, [facility] [id number] [place] [id number] August, Acute suppurative otitis media of right ear without spontaneous rupture of tympanic membrane, recurrence not specified H66.001 and Tinea versicolor B36.[address] [id number] [place] [id number] 09 Sep, 2014 Dental examination V72.2 [facility] [address] [facility] [id number] [address]- [address]13 14 Jul, 2014 [facility] [address] [address]- 3686 Jul, [facility] [address] [address]22 Sep, [facility] [address] [address]- 4994 Oct, [facility] [address] [address]- 9776 May, [facility] [address], [place] [address]- 2314 Mar, IMMUNIZATIONS No Known Immunizations SOCIAL HISTORY Never Assessed REASON FOR VISIT PLAN OF CARE VITAL SIGNS MEDICATIONS Medication Instructions Dosage Frequency Start Date End Date Duration Status Fluconazole 150 MG Orally once weekly x 2 weeks 2 tablets Nov, Nov, 14 days Active RESULTS No Results PROCEDURES No Known procedures INSTRUCTIONS MEDICATIONS ADMINISTERED No Known Medications MEDICAL (GENERAL) HISTORY Type Description Date Medical History asthma Hospitalization History [facility] pneumonia 08/30/2017
--- OUTSIDE RECORDS SUMMARY | 2018-02-01 13:09 | XMS REPORT ---
Author Author LARON DOOLEY 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 Active Problem Unspecified mood [affective] disorder F39 Active 84783569 Problem Pneumonia of right lower lobe due to infectious organism J18.1 Active 504691279 Problem Panic disorder F41.0 Active 419395662 Problem Polysubstance abuse F19.10 Active 861533324 ALLERGIES No Information ENCOUNTERS Encounter Location Date Diagnosis [address] [place] [address] Jan, [id number] [place] [phone] Jan, [address] [place] [address] Dec, [id number] [place] [phone] Dec, Unspecified mood [affective] disorder F39 ; Polysubstance abuse F19.10 and Panic disorder F41.0 [id number] [place] [address] Nov, Methamphetamine use disorder, severe, 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 ; Heroin use disorder, severe F11.20 and Cannabis use disorder, moderate, dependence F12.20 [id number] [place] [address] Nov, Tinea versicolor B36.0 [facility] [address], [place] [address] Nov, Unspecified mood [affective] disorder F39 ; Polysubstance abuse F19.10 and Panic disorder F41.0 [facility] [address], [place] [address] Nov, [facility] [id number] [place] [phone] Nov, [facility] [id number] [place] [address] Oct, Unspecified mood [affective] disorder F39 ; Polysubstance abuse F19.10 and Panic disorder F41.0 [facility] [address], [place] [address] Oct, Tinea versicolor B36.0 [facility] [id number] [place] [address] Sep, Unspecified mood [affective] disorder F39 ; Polysubstance abuse F19.10 and Panic disorder F41.0 [facility] [address] [id number] Sep, Dental examination Z01.20 [facility] [id number], [place] [address] Sep, Unspecified mood [affective] disorder F39 and Polysubstance abuse F19.10 [facility] [id number] [place] [id number] August, [facility] [address] [id number] [place] [id number] August, Pneumonia of right lower lobe due to infectious organism J18.1 [facility] [address] [id number] [id number] Oct, [facility] [address] [id number] [place] [id number] August, Acute suppurative otitis media of right ear without spontaneous rupture of tympanic membrane, recurrence not specified H66.001 and Tinea versicolor B36.[address] [id number] [place] [id number] Sep, Dental examination V72.2 [facility] [address] [facility] [id number] [address] Jul, [facility] [address], [place] [address] Jul, [facility] [address] [place] [phone] Sep, [facility] [address], [place] [address] Oct, [facility] [address] [id number] May, [facility] [address] [facility] [id number] [address] Mar, IMMUNIZATIONS No Known Immunizations SOCIAL HISTORY Never Assessed REASON FOR VISIT SUBAB-IN PLAN OF CARE Activity Details Follow Up 2 - 3 Days Reason: VITAL SIGNS MEDICATIONS Unknown Medications RESULTS No Results PROCEDURES Procedure Date Ordered Result Body Site ALCOHOL AND/OR DRUG ASSESSMENT Nov 29, 2017 INSTRUCTIONS MEDICATIONS ADMINISTERED No Known Medications MEDICAL (GENERAL) HISTORY Type Description Date Medical History asthma Hospitalization History [facility] pneumonia 08/30/2017
[2018-02-01 13:25] LABS: ALANINE AMINOTRANSFERASE 14 U/L (0-55); ALKALINE PHOSPHATASE 78 U/L (40-136); BILIRUBIN,TOTAL 0.3 MG/DL (0.1-1.0); BUN/CREATININE RATIO 16; CALCIUM 8.9 MG/DL (8.5-10.1); CARBON DIOXIDE 25 MMOL/L (21-32); CHLORIDE 105 MMOL/L (98-107); CREATININE SERUM 0.91 MG/DL (0.60-1.30); GFR ESTIMATED > 60; GLUCOSE 91 MG/DL (70-105); POTASSIUM 4.3 MMOL/L (3.6-5.0); SODIUM 138 MMOL/L (135-145); TOTAL PROTEIN 6.7 GM/DL (6.4-8.2)
[2018-02-01 14:26] LABS: BILIRUBIN,URINE NEGATIVE (NEGATIVE); CLARITY,URINE CLEAR; COLOR,URINE YELLOW; GLUCOSE, URINE (UA) NEGATIVE (NEGATIVE); KETONES,URINE NEGATIVE (NEGATIVE); LEUKOCYTE ESTERASE ,URINE NEGATIVE (NEGATIVE); NITRITE,URINE NEGATIVE (NEGATIVE); PH,URINE 6 (5-9); PROTEIN,URINE NEGATIVE (NEGATIVE); UROBILINOGEN,URINE NORMAL (NORMAL)
[2018-02-01 14:52] LABS: BACTERIA,URINE NEGATIVE /HPF; RBC,URINE RARE /HPF; SQUAMOUS EPITHELIAL CELL,UR 0-2 /HPF; WBC,URINE RARE /HPF
[2018-02-01] MEDS ORDERED: PRD20T PO (15:12)
[2018-02-01] MEDS ORDERED: BENZ100C18 PO (15:12)
[2018-02-01] MEDS ORDERED: RT-ALBUINH IH (15:12)
[2018-02-01] MEDS ORDERED: ONDA8TAB9 SL (15:12)
[2018-02-01] MEDS ORDERED: AZIT250T PO (15:12)
[2018-02-01] MEDS ORDERED: AMOX500C2 PO (15:17)
[2018-02-01] MEDS ORDERED: BENZ-36 PO (15:17)
[2018-02-01 15:20] VITALS: BP 110/72
[2018-02-01] MEDS ORDERED: MINO100C2 PO (15:20)
== END 2018-02-01 15:19 | disposition home or self-care (01) ==
LOC: EDUNIT# 12:05 → ER 12:07
DX: J06.9 Acute upper respiratory infection, unspecified (principal); R11.2 Nausea with vomiting, unspecified; R19.7 Diarrhea, unspecified; J45.909 Unspecified asthma, uncomplicated; F31.9 Bipolar disorder, unspecified; F12.10 Cannabis abuse, uncomplicated; F11.10 Opioid abuse, uncomplicated; F17.210 Nicotine dependence, cigarettes, uncomplicated; Z88.0 Allergy status to penicillin; Z88.2 Allergy status to sulfonamides; Z79.51 Long term (current) use of inhaled steroids; Z79.52 Long term (current) use of systemic steroids
CPT/HCPCS: 36415; 80053; 81000; 85025; 86141; 87804; 96361; 96374

== ENCOUNTER 2018-05-08 08:31 | Emergency (ER) | payer OTHER ==
[~2018-05-08] VITALS: Ht 193 cm; Wt 79.4 kg
[~2018-05-08 08:31] MED LIST changes: +AMOX500C2 PO; +AZIT250T PO; +BENZ-36 PO; +BENZ100C18 PO; +MINO100C2 PO; +ONDA8TAB9 SL; +PRD20T PO; +RT-ALBUINH IH
[2018-05-08 09:04] LABS: BILIRUBIN,URINE NEGATIVE (NEGATIVE); CLARITY,URINE CLEAR; COLOR,URINE YELLOW; GLUCOSE, URINE (UA) NEGATIVE (NEGATIVE); KETONES,URINE NEGATIVE (NEGATIVE); LEUKOCYTE ESTERASE ,URINE 2+ (NEGATIVE); NITRITE,URINE NEGATIVE (NEGATIVE); PH,URINE 6 (5-9); PROTEIN,URINE 1+ (NEGATIVE); UROBILINOGEN,URINE 4 MG/DL (NORMAL)
[2018-05-08] MEDS ORDERED: AZITHROMYCIN 250 MG TAB (ZITHROMAX) PO STA (09:11)
[2018-05-08 09:12] LABS: BACTERIA,URINE FEW /HPF; RBC,URINE RARE /HPF; SQUAMOUS EPITHELIAL CELL,UR RARE /HPF; WBC,URINE >100 /HPF
[2018-05-08] MEDS ORDERED: cefTRIAXone 250 MG/ML vial (IM ONLY) IM ONE (09:15)
[2018-05-08] MEDS ORDERED: LIDOCAINE 1% INJ 20 ML 20 ML VIAL INJ ONE (09:15)
--- NOTE | 2018-05-08 09:44 | ED GU-Male ---
General Chief Complaint: -Male Stated Complaint: POSS STD'S;UTI Nursing Triage Note: PT CO OF DRAINAGE FROM PENIS, CHAPPED AREA AROUND PENIS, PT STATES TESTED - AND TREATED FOR CHALMIDIA AND GONNORHEA 2 WEEKS AGO IN CLINIC SX NO IMPROVEMENT Source: patient Exam Limitations: no limitations History of Present Illness Date Seen by Provider: May 08, 2018 Time Seen by Provider: 09:05 Initial Comments Here with complaint of drainage from his penis. Notes that occurs throughout the day. Did have testing done 2 weeks ago for chlamydia and gonorrhea but not syphilis. Those were supposedly negative. He was treated for this hasn't changed his symptoms. He is worried that he has STD or urinary tract infection. Denies any pain with urination. Denies fever or chills. Denies sores or wounds to the area of the penis. Reports that he found out that his was cheating on him with multiple partners and that's what prompted him to get tested. Timing/Duration: constant, other (2 weeks) Severity/Quality: mild Location: urethral Radiation: none Activities at Onset: none Prior Genitourinary Problems: none Sexual [place] History: less than 2 months ago, single partner Modifying Factors: Improves With Urinating Associated Symptoms: No dysuria, No fever/chills, No lumps, No nausea/vomiting , No urinary frequency Allergies and Home Medications Allergies Uncoded Allergies: PENICILLIN (Allergy, Unknown, 01/05/17) SULFA (Allergy, Unknown, 01/05/17) Home Medications Albuterol Sulfate 6.7 Gm Hfa.aer.ad, 2 PUFF IH Q6H PRN for SHORTNESS OF BREATH Prescribed by: ETHAN GRAJEDA on 02/01/18 1512 Patient Home Medication List Home Medication List Reviewed: Yes Review of Systems Review of Systems Constitutional: see HPI; No chills, No fever Respiratory: no symptoms reported Cardiovascular: no symptoms reported Genitourinary: see HPI, discharge; denies dysuria Skin: no symptoms reported Past Qorvkmr-Hmiidj-Raqwcx Hx Past Med/Social Hx: Reviewed Nursing Past Med/Soc Hx Patient Social History Alcohol Use: Denies Use Recreational Drug Use: No Drug of Choice: + IV METH AND HEROIN, THC Smoking Status: Current Everyday Smoker Type Used: Electronic/Vapor 2nd Hand Smoke Exposure: Yes Recent Foreign Travel: No Contact w/Someone Who Travel: No Recent Infectious Disease Expo: No Recent Hopitalizations: No Physical Abuse: No Sexual Abuse: No Immunizations Up To Date Tetanus Booster (TDap): Less than 5yrs PED Vaccines UTD: Yes Seasonal Allergies Seasonal Allergies: Yes Past Medical History Surgeries: No Respiratory: Yes Asthma Cardiac: No Neurological: No Genitourinary: No Gastrointestinal: No Musculoskeletal: Yes Chronic Back Pain Endocrine: No HEENT: No Cancer: No Psychosocial: Yes (POLYSUBSTANCE ABUSE) Bipolar Integumentary: No Blood Disorders: No Family Medical History Reviewed Nursing Family Hx No Pertinent Family Hx Physical Exam Vital Signs Vital Signs - First Documented 05/08/18 08:35 Temp 98.1 Pulse 83 Resp 16 B/P (MAP) 125/67 (86) Pulse Ox 100 Capillary Refill : Less Than 3 Seconds Height, Weight, BMI Height: 6'4.00" Weight: 175lbs. oz. 79.949230pd; BMI Method:Stated General Appearance: WD/WN, no apparent distress Cardiovascular: regular rate, rhythm, no murmur Respiratory: lungs clear, normal breath sounds Male: no hernia; No erythema, No inguinal tenderness, No testicular tenderness ; other (clear discharge at the meatus) Back: normal inspection, no CVA tenderness, no vertebral tenderness Neurologic/Psychiatric: alert, oriented x 3 Skin: normal color, warm/dry Progress/Results/Core Measures Suspected Sepsis Recent Fever Within 48 Hours: No Infection Criteria Present: None New/Unexplained Altered Menta: No Sepsis Screen: No Definite Risk SIRS Temperature:98.1 Pulse: 83 Respiratory Rate: 16 Blood Pressure 125 /67 Mean: 86 Results/Orders Lab Results Laboratory Tests Test 05/08/18 08:50 05/08/18 09:20 Range/Units Urine Color YELLOW Urine Clarity CLEAR Urine pH 6 5-9 Urine Specific [place] 1.020 1.016-1.022 Urine Protein 1+ H NEGATIVE Urine Glucose (UA) NEGATIVE NEGATIVE Urine Ketones NEGATIVE NEGATIVE Urine Nitrite NEGATIVE NEGATIVE Urine Bilirubin NEGATIVE NEGATIVE Urine Urobilinogen 4 H NORMAL MG/DL Urine Leukocyte Esterase 2+ H NEGATIVE Urine RBC (Auto) 1+ H NEGATIVE Urine RBC RARE /HPF Urine WBC >100 H /HPF Urine Squamous Epithelial Cells RARE /HPF Urine Crystals NONE /LPF Urine Bacteria FEW H /HPF Urine Casts NONE /LPF Urine Mucus SMALL H /LPF Urine Culture Indicated YES My Orders Orders - ALEJANDRA TORIBIO MD Ua Culture If Indicated (05/08/18 08:42) Neis Efrain Dna Urine Test (05/08/18 08:42) Chlamydia Trachomatis Urine (05/08/18 08:42) Urine Culture (05/08/18 08:50) Syphilis Antibody Screen (05/08/18 09:11) Ceftriaxone For Im Use (Rocephin For Im (05/08/18 09:15) Azithromycin Tablet (Zithromax Tablet) (05/08/18 09:11) Lidocaine 1% Inj 20 Ml (Xylocaine 1% Inj (05/08/18 09:15) Medications Given in ED Current Medications Medications Dose Ordered Sig/Erasmo Route Start Time Stop Time Status Last Admin Dose Admin Ceftriaxone Sodium 250 mg ONCE ONCE IM 05/08/18 09:15 05/08/18 09:16 DC 05/08/18 09:30 250 MG Lidocaine HCl 0.9 ml ONCE ONCE INJ 05/08/18 09:15 05/08/18 09:16 DC 05/08/18 09:30 0.9 ML Vital Signs/I&O 05/08/18 08:35 Temp 98.1 Pulse 83 Resp 16 B/P (MAP) 125/67 (86) Pulse Ox 100 Capillary Refill : Less Than 3 Seconds Blood Pressure Mean: 86 Progress Note : Progress Note Seen and evaluated. UA ordered. Urine for chlamydia and gonorrhea. We will check syphilis. This is a send out. Rocephin 250 mg IM and Zithromax 1 g by mouth ordered. 0940: UTI noted. We will treat this outpatient. Discharged home with return precautions. Patient verbalize understanding instructions and agreement with plan. Departure Impression Primary Impression: Urinary tract infection Qualified Codes: N30.00 - Acute cystitis without hematuria Additional Impression: Sexually transmitted disease Disposition: 01 HOME, SELF-CARE Condition: Improved Departure-Patient Inst. Decision time for Depature: 09:45 Referrals: NO,LOCAL PHYSICIAN (PCP/Family) Primary Care Physician Patient Instructions: Sexually-Transmitted Diseases (DC), Urinary Tract Infection, Adult (DC) Add. Discharge Instructions: All discharge instructions reviewed with patient and/or family. Voiced understanding. Take medications as directed. You may take ibuprofen 600 mg every 8 hours as needed for pain or fever. You may take Tylenol/acetaminophen 1000 mg every 8 hours as needed for pain or fever. Follow-up with your Dr. in a few days for recheck. Your syphilis test will result in a few days and you will be called if it is positive. Drink plenty of fluids. Return for worse pain, fever, vomiting, weakness, breathing problems or other concerns as needed. Scripts Nitrofurantoin Macrocrystal (Nitrofurantoin) 100 Mg Capsule 100 MG PO BID, #14 CAP 0 Refills Prov: ALEJANDRA TORIBIO MD 05/08/18 ALEJANDRA TORIBIO MD May 08, 2018 09:44
[2018-05-08] MEDS ORDERED: NITR100C PO (09:46)
[2018-05-08 09:55] VITALS: BP 122/82
== END 2018-05-08 09:55 | disposition home or self-care (01) ==
LOC: EDUNIT# 08:31 → ER 08:32
DX: N39.0 Urinary tract infection, site not specified (principal); A64 Unspecified sexually transmitted disease; J45.909 Unspecified asthma, uncomplicated; F31.9 Bipolar disorder, unspecified; F15.10 Other stimulant abuse, uncomplicated; F12.10 Cannabis abuse, uncomplicated; F17.290 Nicotine dependence, other tobacco product, uncomplicated; F11.10 Opioid abuse, uncomplicated; Z88.0 Allergy status to penicillin; Z88.2 Allergy status to sulfonamides; Z79.51 Long term (current) use of inhaled steroids
CPT/HCPCS: 36415; 81000; 86780; 87088; 87491; 87591; 99284

== ENCOUNTER → 2018-06-12 | Emergency (ER) | payer OTHER ==
[~2018-06-12] VITALS: Ht 193 cm; Wt 81.2 kg
[~2018-06-12] MED LIST changes: +NITR100C PO
[2018-06-12 16:51] LABS: CLARITY,URINE SLIGHTLY CLOUDY; COLOR,URINE AMBER; GLUCOSE, URINE (UA) NEGATIVE (NEGATIVE); KETONES,URINE 1+ (NEGATIVE); LEUKOCYTE ESTERASE ,URINE 2+ (NEGATIVE); NITRITE,URINE NEGATIVE (NEGATIVE); PH,URINE 6 (5-9); PROTEIN,URINE 1+ (NEGATIVE); UROBILINOGEN,URINE 8 MG/DL (NORMAL)
[2018-06-12 16:51] LABS: BASOPHILS % (AUTO) 0 % (0-10); EOSINOPHILS # (AUTO) 0.3 10^3/uL (0.0-0.3); EOSINOPHILS % (AUTO) 3 % (0-10); HEMATOCRIT 41 % (40-54); LYMPHOCYTES # (AUTO) 2.7 X 10^3 (1.0-4.0); LYMPHOCYTES % (AUTO) 36 % (12-44); MEAN CORPUSCULAR HEMOGLOBIN 30 PG (25-34); MEAN CORPUSCULAR HGB CONC 35 G/DL (32-36); MEAN CORPUSCULAR VOLUME 87 FL (80-99); MEAN PLATELET VOLUME 9.8 FL (7.4-10.4); MONOCYTES # (AUTO) 0.8 X 10^3 (0.0-1.0); MONOCYTES % (AUTO) 10 % (0-12); NEUTROPHILS # (AUTO) 3.9 X 10^3 (1.8-7.8); NEUTROPHILS % (AUTO) 51 % (42-75); PLATELET COUNT 203 10^3/uL (130-400); WHITE BLOOD COUNT 7.7 10^3/uL (4.3-11.0)
[2018-06-12 17:05] LABS: AMPHETAMINE SCREEN, URINE POSITIVE (NEGATIVE); BARBITURATE SCREEN URINE NEGATIVE (NEGATIVE); BENZODIAZEPINES SCREEN URINE NEGATIVE (NEGATIVE); CANNABINOID SCREEN, URINE POSITIVE (NEGATIVE); COCAINE SCREEN URINE NEGATIVE (NEGATIVE); METHADONE STAT NEGATIVE (NEGATIVE); METHAMPHETAMINE SCREEN URINE S POSITIVE (NEGATIVE); OPIATE SCREEN URINE NEGATIVE (NEGATIVE); OXYCODONE STAT NEGATIVE (NEGATIVE); PROPOXYPHENE STAT NEGATIVE (NEGATIVE); TRICYCLIC ANTIDEPRESSANTS SCRE NEGATIVE (NEGATIVE)
[2018-06-12 17:14] LABS: ALANINE AMINOTRANSFERASE 18 U/L (0-55); ALBUMIN 4.2 GM/DL (3.2-4.5); ALKALINE PHOSPHATASE 69 U/L (40-136); AMYLASE 34 U/L (25-125); BUN/CREATININE RATIO 15; CALCIUM 9.6 MG/DL (8.5-10.1); CARBON DIOXIDE 26 MMOL/L (21-32); CHLORIDE 104 MMOL/L (98-107); CREATININE SERUM 1.04 MG/DL (0.60-1.30); GFR ESTIMATED > 60; GLUCOSE 103 MG/DL (70-105); POTASSIUM 4.2 MMOL/L (3.6-5.0); SALICYLATE < 5.0 MG/DL (5.0-20.0); SODIUM 138 MMOL/L (135-145); TOTAL PROTEIN 6.9 GM/DL (6.4-8.2)
[2018-06-12 17:14] LABS: BILIRUBIN,URINE 1+ (NEGATIVE); RBC,URINE 0-2 /HPF
[2018-06-12 17:17] LABS: BACTERIA,URINE FEW /HPF; SQUAMOUS EPITHELIAL CELL,UR 0-2 /HPF
[2018-06-12 17:26] LABS: ACETAMINOPHEN < 10 UG/ML (10-30)
--- NOTE | 2018-06-12 18:42 | ED Psychosocial ---
General Chief Complaint: Substance Abuse Stated Complaint: WANTS DETOX Nursing Triage Note: PT VERBALIZED WANTS DETOXED OFF METH IV USES EITHER YESTERDAY OR DAY BEFORE. STATES USED SINCE 27 YRS OLD. PT WANTED TO HARMSELF EARLIER WITH OWN GUN, PT HAS SINCE "DISPOSED OF GUN" AND NOW DOES NOT WANT TO HURT HIMSELF Source: patient Exam Limitations: no limitations History of Present Illness Date Seen by Provider: Jun 12, 2018 Time Seen by Provider: 15:50 Initial Comments 32-year-old male who presents to the emergency room for complaints of wanting detox off of methamphetamine. He reports using yesterday and has used for the past 5 years. He is accompanied by a female friend who reports that she received a phone call from him today and he told her that he was going to shoot himself to end it all. She talked the patient down at the patient drive and need her so she can bring him to the hospital or treatment. He reports that he does not want to hurt himself any more and suicidal thoughts have passed. . Denies any past medical history or recent surgeries. He sees [facility] for his primary care. The patient is very calm and cooperative on arrival to the emergency room. Timing/Duration: this afternoon Associated Symptoms: suicidal ideation, other (Methamphetamine use) Allergies and Home Medications Allergies Uncoded Allergies: PENICILLIN (Allergy, Unknown, 01/05/17) SULFA (Allergy, Unknown, 01/05/17) Home Medications Albuterol Sulfate 6.7 Gm Hfa.aer.ad, 2 PUFF IH Q6H PRN for SHORTNESS OF BREATH Prescribed by: ETHAN GRAJEDA on 02/01/18 1512 Nitrofurantoin Macrocrystal 100 Mg Capsule, 100 MG PO BID Prescribed by: ALEJANDRA TORIBIO on 05/08/18 0946 Patient Home Medication List Home Medication List Reviewed: Yes Review of Systems Constitutional: no symptoms reported, see HPI Psychiatric/Neurological: See HPI, Emotional Problems (suicidal ideation substance abuse) All Other Systems Reviewed Negative Unless Noted: Yes Past Yedlyum-Bivlol-Qzmfwf Hx Past Med/Social Hx: Reviewed Nursing Past Med/Soc Hx Patient Social History Alcohol Use: Denies Use Recreational Drug Use: Yes Drug of Choice: + IV METH AND HEROIN, THC, cocaine Smoking Status: Current Everyday Smoker Type Used: Cigarettes, Electronic/Vapor 2nd Hand Smoke Exposure: Yes Recent Foreign Travel: No Contact w/Someone Who Travel: No Recent Infectious Disease Expo: No Recent Hopitalizations: No Immunizations Up To Date Tetanus Booster (TDap): Less than 5yrs PED Vaccines UTD: Yes Seasonal Allergies Seasonal Allergies: Yes Past Medical History Surgeries: Yes (lower back, and head) Respiratory: Yes Asthma Cardiac: No Neurological: No Genitourinary: No Gastrointestinal: No Musculoskeletal: Yes Chronic Back Pain Endocrine: No HEENT: No Cancer: No Psychosocial: Yes (POLYSUBSTANCE ABUSE) Sleep Difficulties, Bipolar Integumentary: No Blood Disorders: No Family Medical History Reviewed Nursing Family Hx No Pertinent Family Hx Physical Exam Vital Signs - First Documented 06/12/18 06/12/18 14:37 18:46 Temp 97.7 Pulse 100 Resp 16 B/P (MAP) 139/72 (94) Pulse Ox 97 O2 Delivery Room Air Capillary Refill : Less Than 3 Seconds Height, Weight, BMI Height: 6'4.00" Weight: 179lbs. oz. 81.924141oj; BMI Method:Estimated General Appearance: WD/WN, no apparent distress Respiratory: chest non-tender, lungs clear, normal breath sounds, no respiratory distress, no accessory muscle use, respiratory distress Cardiovascular: normal peripheral pulses, regular rate, rhythm, no edema, no gallop, no JVD, no murmur Extremities: normal range of motion, non-tender, normal inspection, no pedal edema, no calf tenderness, normal capillary refill Neurologic/Psychiatric: alert, normal mood/affect, oriented x 3 Appearance/Memory: appropriate appearance, appropriate insight Behavior/Eye Contact: cooperative, good eye contact, normal speech Thoughts/Hallucinations: normal thought pattern Skin: normal color, warm/dry Progress/Results/Core Measures Results/Orders Lab Results Laboratory Tests Test 06/12/18 16:35 06/12/18 16:40 Range/Units White Blood Count 7.7 4.3-11.0 10^3/uL Red Blood Count 4.66 4.35-5.85 10^6/uL Hemoglobin 14.0 13.3-17.7 G/DL Hematocrit 41 40-54 % Mean Corpuscular Volume 87 80-99 FL Mean Corpuscular Hemoglobin 30 25-34 PG Mean Corpuscular Hemoglobin Concent 35 32-36 G/DL Red Cell Distribution Width 13.0 10.0-14.5 % Platelet Count 203 130-400 10^3/uL Mean Platelet Volume 9.8 7.4-10.4 FL Neutrophils (%) (Auto) 51 42-75 % Lymphocytes (%) (Auto) 36 12-44 % Monocytes (%) (Auto) 10 0-12 % Eosinophils (%) (Auto) 3 0-10 % Basophils (%) (Auto) 0 0-10 % Neutrophils # (Auto) 3.9 1.8-7.8 X 10^3 Lymphocytes # (Auto) 2.7 1.0-4.0 X 10^3 Monocytes # (Auto) 0.8 0.0-1.0 X 10^3 Eosinophils # (Auto) 0.3 0.0-0.3 10^3/uL Basophils # (Auto) 0.0 0.0-0.1 10^3/uL Sodium Level 138 135-145 MMOL/L Potassium Level 4.2 3.6-5.0 MMOL/L Chloride Level 104 98-107 MMOL/L Carbon Dioxide Level 26 21-32 MMOL/L Anion Gap 8 5-14 MMOL/L Blood Urea Nitrogen 16 7-18 MG/DL Creatinine 1.04 0.60-1.30 MG/DL Estimat Glomerular Filtration Rate > 60 BUN/Creatinine Ratio 15 Glucose Level 103 70-105 MG/DL Calcium Level 9.6 8.5-10.1 MG/DL Corrected Calcium 9.4 8.5-10.1 MG/DL Total Bilirubin 1.0 0.1-1.0 MG/DL Aspartate Amino Transf (AST/SGOT) 25 5-34 U/L Alanine Aminotransferase (ALT/SGPT) 18 0-55 U/L Alkaline Phosphatase 69 40-136 U/L Total Protein 6.9 6.4-8.2 GM/DL Albumin 4.2 3.2-4.5 GM/DL Amylase Level 34 25-125 U/L TSH [place] Testing 0.40 0.35-4.94 UIU/ML Salicylates Level < 5.0 L 5.0-20.0 MG/DL Acetaminophen Level < 10 L 10-30 UG/ML Serum Alcohol < 10 <10 MG/DL Urine Color JULIO CESAR H Urine Clarity SLIGHTLY CLOUDY Urine pH 6 5-9 Urine Specific [place] 1.025 H 1.016-1.022 Urine Protein 1+ H NEGATIVE Urine Glucose (UA) NEGATIVE NEGATIVE Urine Ketones 1+ H NEGATIVE Urine Nitrite NEGATIVE NEGATIVE Urine Bilirubin 1+ H NEGATIVE Urine Urobilinogen 8 H NORMAL MG/DL Urine Leukocyte Esterase 2+ H NEGATIVE Urine RBC (Auto) 1+ H NEGATIVE Urine RBC 0-2 /HPF Urine WBC 10-25 H /HPF Urine Squamous Epithelial Cells 0-2 /HPF Urine Crystals NONE /LPF Urine Bacteria FEW H /HPF Urine Casts NONE /LPF Urine Mucus LARGE H /LPF Urine Culture Indicated YES Urine Opiates Screen NEGATIVE NEGATIVE Urine Oxycodone Screen NEGATIVE NEGATIVE Urine Methadone Screen NEGATIVE NEGATIVE Urine Propoxyphene Screen NEGATIVE NEGATIVE Urine Barbiturates Screen NEGATIVE NEGATIVE Ur Tricyclic Antidepressants Screen NEGATIVE NEGATIVE Urine Phencyclidine Screen NEGATIVE NEGATIVE Urine Amphetamines Screen POSITIVE H NEGATIVE Urine Methamphetamines Screen POSITIVE H NEGATIVE Urine Benzodiazepines Screen NEGATIVE NEGATIVE Urine Cocaine Screen NEGATIVE NEGATIVE Urine Cannabinoids Screen POSITIVE H NEGATIVE Micro Results Microbiology 06/12/18 Urine Culture - Final, Complete NO GROWTH My Orders Orders - MARIE BUCHANAN Ua Culture If Indicated (06/12/18 15:52) Cbc With Automated Diff (06/12/18 15:52) Comprehensive Metabolic Panel (06/12/18 15:52) Alcohol (06/12/18 15:52) Drug Screen Stat (Urine) (06/12/18 15:52) Acetaminophen (06/12/18 15:52) Salicylate (06/12/18 15:52) Ekg Tracing (06/12/18 15:52) Saline Lock/Iv-Start (06/12/18 15:52) Thyroid Analyzer (06/12/18 15:52) Amylase (06/12/18 15:52) Monitor-Rhythm Ecg Trace Only (06/12/18 15:52) Bh Status Checks/Observation Q15M (06/12/18 15:52) Saline Lock/Iv-Start (06/12/18 15:52) Urine Culture (06/12/18 16:40) General/Regular (06/12/18 Dinner) Vital Signs/I&O Blood Pressure Mean: 94 Progress Progress Note : Time: 16:30 Progress Note Cailin [place] [address] [place] [address] was in the emergency room evaluating another patient and she did stop in to see the patient for a brief moment instructed me to call her when his results were back. 1800: Cailin was called again and she recommended that the patient be transferred to inpatient psych given that the patient is voluntary. The patient reports that he cannot leave the state due arrest warrant and surrounding states. 1824: Farbia Richter was called for placement and records were sent. 2139 the patient did intake questionnaire over the phone with Fariba Richter nurse. 2199: Fariba Mccallil declined because they felt this was more substance abuse and needing placement versus psychiatric inpatient. 2229: The patient tried to leave the hospital and the police were called. The police arrived and the deescalated the situation the patient agreed to be screened by [facility] but will not agree to be transferred to a psych facility and wants to leave the hospital. [phone] was called again and Cailin did not feel that she needed to come out and evaluate the patient and feels that the patient is not an imminent threat to himself and will be making phone checks with him tomorrow morning and setting up outpatient care. The patient called a friend for a ride home. Return precautions were given. Initial ECG Impression Date: Jun 12, 2018 Initial ECG Impression Time: 16:31 Initial ECG Rate: 81 Initial ECG Rhythm: Normal Sinus Initial ECG Impression: Normal Initial ECG Comparisson: No Previous ECG Available Departure Impression Primary Impression: Suicidal ideation Additional Impressions: Methamphetamine abuse Cannabis abuse Left against medical advice Disposition: 07 AGAINST MEDICAL ADVICE Condition: Stable Departure-Patient Inst. Referrals: [facility] (PCP/Family) Primary Care Physician Patient Instructions: ALCOHOL AND SUBSTANCE ABUSE, Leaving Against Medical Advice, Suicide Prevention Add. Discharge Instructions: Return back to the emergency room should your thoughts of suicide return or any other worsening symptoms or concerns. [facility] will be contacting you for well checks by phone. Follow-up with your primary care provider as needed. All discharge instructions reviewed with patient and/or family. Voiced understanding. MARIE BUCHANAN Jun 12, 2018 18:42
[2018-06-12 18:46] VITALS: BP 130/90
--- NOTE | 2018-06-12 19:20 | NUR ---
PT OBSERVED SITTING UPRIGHT, EATING HIS MEAL, DENIES NEEDS AT THIS TIME, NO S/S OF DISTRESS
--- NOTE | 2018-06-12 20:22 | NUR ---
PT NOTED PACING IN THE ROOM, ENTERED ROOM, PT WAS SEARCHING FOR A BAG TO PLACE SOME OF HIS CLOTHES IN, BAG PROVIDED, NO S/S OF DISTRESS.
--- NOTE | 2018-06-12 22:57 | NUR ---
PROVIDER IN ROOM TO DISCUSS CARE PLAN WITH PT, PT BECAME AGITATED D/T BEING DECLINED AT [facility], PT BEGAN TO STATE HE WOULD JUST WALK OUT, PROVIDER TOLD THE PT THAT HE WAS REPORTED TO HAVE BEEN FOUND THREATENING TO KILL HIMSELF WITH A FIREARM AND WOULD NOT BE RELEASEDFOR HIS OWN SAFETY. POLICE CONTACTED.
--- NOTE | 2018-06-12 23:02 | NUR ---
POLICE ONSITE, SPEAKING TO PT.
[2018-06-12 23:32] VITALS: BP 123/76
--- NOTE | 2018-06-12 23:37 | NUR ---
AMA FORM SIGNED BY PATIENT AFTER SPEAKING TO PROVIDER AND POLICE, PT VERBALIZED UNDERSTANDING HIS DECISION.
== END | disposition left against medical advice (07) ==
LOC: EDUNIT# 14:24 → ER 14:25
DX: R45.851 Suicidal ideations (principal); F15.10 Other stimulant abuse, uncomplicated; F12.10 Cannabis abuse, uncomplicated; F14.10 Cocaine abuse, uncomplicated; F11.10 Opioid abuse, uncomplicated; J45.909 Unspecified asthma, uncomplicated; F31.9 Bipolar disorder, unspecified; F17.210 Nicotine dependence, cigarettes, uncomplicated; F17.290 Nicotine dependence, other tobacco product, uncomplicated; Z88.0 Allergy status to penicillin; Z88.2 Allergy status to sulfonamides; Z79.51 Long term (current) use of inhaled steroids
CPT/HCPCS: 36415; 80053; 80306; 80320; 80329; 81000; 82150; 84443; 85025; 87088; 93005; 93041